=== PATIENT | female | born 1965 | race Caucasian/White ===

== ENCOUNTER → 2017-12-14 | Outpatient (CLI) | payer OTHER ==
[~2017-12-14] VITALS: Ht 160 cm; Wt 107.3 kg
[~2017-12-14] MED LIST: ASPI81TA28 PO; ATOR10TA82 PO; FLUO20CA35 PO; LISI10TA PO; METF-384 PO; MULT-506 PO; OXYC-57 PO; SULF800T23 PO
[2017-12-14 13:18] VITALS: BP 120/76; PULSE 118; Ht 160 cm; Wt 107.3 kg
== END | disposition home or self-care (01) ==
LOC: C.NEUR 13:02
PROVIDERS: ATTEND Internal Medicine Pulmonary Disease
DX: R06.83 Snoring (principal); R06.81 Apnea, not elsewhere classified; R53.83 Other fatigue; G47.19 Other hypersomnia; E66.01 Morbid (severe) obesity due to excess calories; F41.8 Other specified anxiety disorders

== ENCOUNTER 2024-02-13 22:09 | Inpatient (IN) ==
[2024-02-13 22:57] LABS: Basophils # (auto) 0.06 K/uL (0.00-0.20); Basophils % (auto) 0.5 %; Eosinophils # (auto) 0.23 K/uL (0.00-0.50); Hematocrit (blood only) 43.3 % (37.0-47.0); Hemoglobin 14.2 g/dl (12.0-16.0); Immature Granulocytes # (auto) 0.04 K/uL (0.01-0.20); Immature Granulocytes % (auto) 0.3 %; Lymphocytes # (auto) 2.59 K/uL (1.20-3.40); Lymphocytes % (auto) 22.4 %; Mean Corpuscular Hemoglobin 28.3 pg (25.0-34.0); Mean Corpuscular Hgb Conc 32.8 g/dL (32.0-36.0); Mean Corpuscular Volume 86.3 fL (80.0-100.0); Mean Platelet Volume 10.9 fL (9.4-12.4); Monocytes # (auto) 0.68 K/uL (0.11-0.59); Monocytes % (auto) 5.9 %; Neutrophils # (auto) 7.97 K/uL (1.40-6.50); Neutrophils % (auto) 68.9 %; Platelet Count 223 K/uL (130-400); RDW Coefficient of Variation 14.6 % (11.5-14.5); Red Blood Count 5.02 M/uL (4.20-5.40); White Blood Count 11.57 K/ul (4.8-10.8)
[2024-02-13 23:12] LABS: Albumin Globulin Ratio 1.2 (0.9-2); BUN Creatinine Ratio 18.8 (10-20); Bilirubin,Total 0.4 mg/dl (0.2-1.0); Calcium 9.2 mg/dl (8.6-10.3); Creatinine Clr Calc Pharmacy 85.9 ml/min; Globulin 3.4 gm/dl (2.5-4.0); Potassium 4.2 mmol/L (3.5-5.1); Total Protein 7.4 gm/dl (6.0-8.3)
[2024-02-13 23:17] LABS: Troponin I High Sensitivity 3.6 pg/ml (0-14)
--- NOTE | 2024-02-13 23:19 | Emergency Department Note ---
Impression & Plan Bilateral pulmonary embolism, DVT (deep venous thrombosis) ED Provider Note NAME: KALYAN PENALOZA AGE: 59 SEX: Female INFORMANT: Patient ED PROVIDER(S): Jeremy Marquez MD CHIEF COMPLAINT: Chest pain PLAN: Disposition: Admitted Outpatient prescription management: None Referral: None MEDICAL DECISION MAKING: Patient presented because of chest pain. Workup was initiated. She had some wheeze and was given a DuoNeb. ECG revealed no acute ischemia. Chest x-ray has a prominent markings but no focal infiltrate. No pneumothorax. Patient had an unremarkable CBC and chemistry panel. Cardiac troponin and BNP negative. Patient D-dimer was markedly elevated. This prompted ultrasound imaging of the legs as well as CT PE study of the chest. Patient was found to have bilateral pulmonary emboli with heart strain as well as a DVT. Patient was informed. Hypercoagulability labs ordered. IV heparin initiated. Consultation was made with the [facility] service, Dr. Briscoe. 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 Vital Signs: reviewed and remarkable for no significant abnormalities Additional History obtained from: none Chronic Medical/Social Conditions affecting care: Depression Prior/ Outside/ External records reviewed: Appendectomy Differential Diagnosis: Cardiac ischemia, aortic dissection, pulmonary embolism, pneumothorax, pneumonia, pericarditis, myocarditis, esophageal rupture, GERD, cholecystitis, pancreatitis, musculoskeletal, as well as other pathologies. Diagnostics, independently interpreted by me: ECG: Twelve-lead ECG reveals a normal sinus rhythm at [address] elevation or depression. No PVCs. Cardiac Monitoring: Cardiac monitoring ordered by me: The patient was placed on continuous cardiac monitoring and observed. It revealed a normal sinus rhythm at 82 beats per minute without ectopy or evidence of dysrhythmia. Medical decision rules: none Imaging studies: Chest x-ray. Findings: A chest x-ray was performed and revealed no pneumothorax, effusion, infiltrate,. CT PE study reveals bilateral pulmonary emboli. I refer you to the EMR for further details. HPI: 59 year old Female arrives for evaluation of chest pain. This started several days ago and is intermittent. The patient also notes the following associated symptoms, cough, feet swelling, joints, running nose, shortness of breath, sore throat, chills. The patient has tried tylenol for relieving factors. Current pain is rated as 3/10. Pt went to [facility] due to depression and referred to ER. No HI. +SI. Pt denies LOC, headache, fevers, chills, diaphoresis, visual changes, neck pain, nausea, vomiting, abdominal pain, back pain, melena, hematochezia, urinary symptoms, numbness, weakness, lymphadenopathy, rash, or other complaints. PAST MEDICAL HISTORY: See Below, depression PAST SURGICAL HISTORY: See Below, SOCIAL HISTORY: See Below, smoker HOME MEDICATIONS: See Below ALLERGIES: See Below VITALS: See Below PHYSICAL EXAMINATION: GENERAL: Awake, alert, well-appearing, in no distress HENT: Normocephalic, atraumatic. Oropharynx unremarkable. EYES: Normal conjunctiva. Sclera non-icteric. NECK: Inspection normal. Non-tender. Supple. No nuchal rigidity. FROM. No masses. RESPIRATORY: Clear to auscultation. No wheezes. No rales. Normal respiratory effort. CARDIAC: Normal rate. Normal rhythm. No murmurs. No rubs. Extremities warm and well perfused. Pulses equal. No JVD. GI: Soft, non-distended. No tenderness to palpation. No rebound or guarding. No masses. RECTAL: Deferred. MUSCULOSKELETAL: Atraumatic. Chest examination reveals no tenderness. The back is symmetrical on inspection without obvious abnormality. There is no CVA tenderness to palpation. No joint edema. LOWER EXTREMITIES: Calves are equal size bilaterally and mildly tender. +1-2 edema. No discoloration. NEURO: Normal sensorium. No sensory or motor deficits noted. SKIN: No rash or jaundice noted. PROCEDURES: none CRITICAL CARE: I have personally spent 40 minutes of critical care time in the direct management of this patient. This includes bedside care, interpretation of diagnostic studies, and testing, discussion with consultants, patient, and other required patient management activities. These minutes are in excess of all separately billable procedures. OBSERVATION NOTE: none Past Med/Surg History Problem List (Updated 02/14/24 @ 03:30 by Jeremy Marquez MD) DVT (deep venous thrombosis) (Acute) Bilateral pulmonary embolism (Acute) Acute pulmonary embolism Kidney stone (Chronic) UTI (urinary tract infection) (Chronic) Depression (Chronic) RLS (restless legs syndrome) (Chronic) S/P cholecystectomy (Chronic) S/P appendectomy (Chronic) History of hysterectomy (Chronic) Left flank pain (Acute) Leukocytosis (Acute) UPJ obstruction, congenital (Chronic) Social History Smoking Status: Current every day smoker Tobacco Type: Cigarettes Preferred Language: Nepali Feels Safe at Home: Yes Allergies Allergies Allergy/AdvReac Type Severity Reaction Status Date / Time Penicillins Allergy Intermediate LIPS Verified 09/19/17 10:58 SWELLED citalopram Allergy Unknown RESTLESS Verified 09/19/17 10:58 LEGS ketorolac Allergy Unknown RESTLESS Verified 09/19/17 10:58 LEGS codeine AdvReac Unknown ABD PAIN Verified 09/19/17 10:58 Home Meds Home Medications Medication Instructions Recorded Confirmed aripiprazole 5 mg tablet 5 mg PO DAILY 02/14/24 02/14/24 venlafaxine 75 mg capsule,extended 75 mg PO DAILY 02/14/24 02/14/24 release 24 hr Results & Data (ED) Vital Signs Vital Signs - 24 hr 02/13/24 22:18 02/13/24 22:41 02/13/24 22:56 Temperature 36.5 C Temperature Source Temporal Artery Scan Pulse Rate 76 73 Pulse Rate [Apical] Respiratory Rate 16 Respiratory Effort / Characteristics Respiratory Depth Normal Respiratory Pattern Blood Pressure 183/92 H Blood Pressure [Right Arm] Blood Pressure Mean 122 Blood Pressure Mean [Right Arm] Pulse Oximetry 93 92 Oxygen Delivery Method Room Air Room Air Sepsis Recent Fever Within 48 Hours No Sepsis New/Unexplained Change in Mental Status No Sepsis Action Taken by Nursing No Action Required 02/14/24 01:32 02/14/24 02:53 02/14/24 03:05 Temperature Temperature Source Pulse Rate 67 Pulse Rate [Apical] 72 Respiratory Rate 16 Respiratory Effort / Characteristics Non-Labored Spontaneous Respiratory Depth Normal Respiratory Pattern Regular Blood Pressure Blood Pressure [Right Arm] 117/99 Blood Pressure Mean Blood Pressure Mean [Right Arm] 105 Pulse Oximetry 92 94 Oxygen Delivery Method Room Air Room Air Sepsis Recent Fever Within 48 Hours Sepsis New/Unexplained Change in Mental Status Sepsis Action Taken by Nursing 02/14/24 03:12 Temperature Temperature Source Pulse Rate Pulse Rate [Apical] 66 Respiratory Rate 16 Respiratory Effort / Characteristics Non-Labored Spontaneous Respiratory Depth Normal Respiratory Pattern Regular Blood Pressure Blood Pressure [Right Arm] 125/71 Blood Pressure Mean Blood Pressure Mean [Right Arm] 89 Pulse Oximetry 95 Oxygen Delivery Method Room Air Sepsis Recent Fever Within 48 Hours Sepsis New/Unexplained Change in Mental Status Sepsis Action Taken by Nursing Laboratory Data 02/13/24 22:30 02/13/24 22:30 Lab Results 02/13/24 02/14/24 Range/Units 22:30 Unknown WBC 11.57 H (4.8-10.8) K/ul RBC 5.02 (4.20-5.40) M/uL Hgb 14.2 (12.0-16.0) g/dl Hct 43.3 (37.0-47.0) % MCV 86.3 (80.0-100.0) fL MCH 28.3 (25.0-34.0) pg MCHC 32.8 (32.0-36.0) g/dL RDW Std Deviation 46.0 (36.4-46.3) fL RDW Coeff of Alber 14.6 H (11.5-14.5) % Plt Count 223 (130-400) K/uL MPV 10.9 (9.4-12.4) fL Immature Gran % (Auto) 0.3 % Neut % (Auto) 68.9 % Lymph % (Auto) 22.4 % Wythe % (Auto) 5.9 % Eos % (Auto) 2.0 % Baso % (Auto) 0.5 % Neut # (Auto) 7.97 H (1.40-6.50) K/uL Lymph # (Auto) 2.59 (1.20-3.40) K/uL Wythe # (Auto) 0.68 H (0.11-0.59) K/uL Eos # (Auto) 0.23 (0.00-0.50) K/uL Baso # (Auto) 0.06 (0.00-0.20) K/uL Immature Gran # (Auto) 0.04 (0.01-0.20) K/uL PT 10.2 (9.0-12.0) Seconds INR 0.9 (0.9-1.1) APTT 27 (21-31) Seconds PTT Ratio 1.0 D-Dimer 2970 H* (0-500) ug/L FEU Sodium 137 (136-145) mmol/L Potassium 4.2 (3.5-5.1) mmol/L Chloride 103 (98-107) mmol/L Carbon Dioxide 26 (21-32) mmol/L Anion Gap 8 (3-11) BUN 15 (6-23) mg/dl Creatinine 0.80 (0.6-1.2) mg/dl Est Cr Clr Drug Dosing 85.9 ml/min eGFR 84.82 BUN/Creatinine Ratio 18.8 (10-20) Glucose 105 H (70-99(Fasting)) mg/dl Calcium 9.2 (8.6-10.3) mg/dl Total Bilirubin 0.4 (0.2-1.0) mg/dl AST 18 (13-39) U/L ALT 17 (7-52) U/L Alkaline Phosphatase 101 (34-104) U/L Troponin I High Sens 3.6 (0-14) pg/ml B-Natriuretic Peptide 19 (0-100) pg/ml Total Protein 7.4 (6.0-8.3) gm/dl Albumin 4.0 (3.4-5.0) gm/dl Globulin 3.4 (2.5-4.0) gm/dl Albumin/Globulin Ratio 1.2 (0.9-2) Lipase 31 (11-82) U/L Adenovirus (PCR) Not Detected (NotDetected) B. pertussis DNA (PCR) Not Detected (NotDetected) B.parapertussis DNA PCR Not Detected (NotDetected) Lyme Disease Screen Negative (Negative) C. pneumoniae DNA (PCR) Not Detected (NotDetected) Coronavirus OC43 (PCR) Not Detected (NotDetected) Coronavirus HKU1 (PCR) Not Detected (NotDetected) Coronavirus 229E (PCR) Not Detected (NotDetected) SARS-CoV-2 (PCR) Not Detected (NotDetected) Coronavirus NL63 (PCR) Not Detected (NotDetected) Human Metapneumovir PCR Not Detected (NotDetected) Influenza Type A (PCR) Not Detected (NotDetected) Influenza Type B (PCR) Not Detected (NotDetected) M. pneumoniae (PCR) Not Detected (NotDetected) Parainfluenza 1 (PCR) Not Detected (NotDetected) Parainfluenza 2 (PCR) Not Detected (NotDetected) Parainfluenza 3 (PCR) Not Detected (NotDetected) Parainfluenza 4 (PCR) Not Detected (NotDetected) RSV (PCR) Not Detected (NotDetected) Entero/Rhino (PCR) Not Detected (NotDetected) Administered Medications Heparin Sodium/Dextrose (Heparin Sodium/Dextrose) 25,000 units in 500 mls @ 26 mls/hr IV .[id number] [facility]; Protocol Stop: 03/15/24 01:44 Last Admin: 02/14/24 02:36 Dose: 1,300 units/hr, 26 mls/hr Documented By: MED Co-signed By: OTTONIEL Discontinued Medications Acetaminophen (Acetaminophen 500 Mg Tab) 1,000 mg PO NOW STA Stop: 02/13/24 23:22 Last Admin: 02/13/24 23:42 Dose: 1,000 mg Documented By: SHARI Albuterol (Albut/Ipratrop 3mg/0.5mg Neb 3 Ml Vial) 3 ml NEB NOW STA; Protocol Stop: 02/13/24 23:22 Last Admin: 02/13/24 23:43 Dose: 3 ml Documented By: SHARI Heparin Sodium (Porcine) (Heparin Sod (Porcine) 1000 Unit/Ml) 1 units IV NOW ONE Stop: 02/14/24 01:44 Last Admin: 02/14/24 02:46 Dose: 6,000 units Documented By: MED Co-signed By: OTTONIEL Heparin Sodium/Dextrose (Heparin Iv Adult Wt-Based Standard W/ Initial Bolus Protocol) 1 each IV NOW STA; Protocol Stop: 02/14/24 01:28 Last Admin: 02/14/24 02:54 Dose: Not Given Documented By: SHARI Hydromorphone HCl (Hydromorphone Inj 0.5 Mg/0.5 Ml Syr) 0.5 mg IV NOW STA Stop: 02/14/24 03:04 Last Admin: 02/14/24 03:18 Dose: 0.5 mg Documented By: SHARI Ioversol (Optiray 320 125ml) 125 ml IV ONCE ONE Stop: 02/14/24 01:23 Last Admin: 02/14/24 01:23 Dose: 118 ml Documented By: MARY Lorazepam (Lorazepam 0.5 Mg Tab) 0.5 mg PO NOW STA Stop: 02/14/24 03:04 Last Admin: 02/14/24 03:17 Dose: 0.5 mg Documented By: [employer] Data Radiologist's Impression: Chest CTA 02/14/24 00:24 CR Exam(s): CTA CHEST IV Amt: 118 ML OPTIRAY 320 EXAM: CT Angiography Chest With Intravenous Contrast CLINICAL HISTORY: Eval for PE, + dimer, cp, sob. TECHNIQUE: Axial computed tomographic angiography images of the chest with intravenous contrast. CTDI is 28.14 mGy and DLP is 777.99 mGy-cm. Automated exposure control was utilized for the study. A dose lowering technique was utilized adhering to the principles of ALARA. MIP reconstructed images were created and reviewed. COMPARISON: No relevant prior studies available. FINDINGS: Pulmonary arteries: Bilateral pulmonary emboli noted involving the distal right main pulmonary artery with extension from the right proximal apical and posterior basal segment with extension, extending into the right posterior basal segments of the lower lobe. There is also thrombus noted in the right middle lobe branches and involving the right anterior apical segment. There is subsegmental thrombus noted involving the posterior basal segments of the left lower lobe. Aorta: The thoracic aorta is normal in caliber. No dissection or aneurysm. Lungs: Scattered ground-glass opacities noted throughout the lungs is somewhat heterogeneous attenuation and evidence of interlobular septal thickening. No well-defined lobar consolidation. Pleural space: Unremarkable. No significant effusion. No pneumothorax. Heart: The cardiac chambers are upper normal limits. There is asymmetric prominence of the right ventricle with the RV LV ratio abnormally dilated at 1.5. No pericardial effusion. Bones/joints: No acute fracture. No dislocation. Soft tissues: Unremarkable. Lymph nodes: Scattered paratracheal and AP window lymph nodes, with the largest lymph node at the level of the aortic arch measuring 14 mm. IMPRESSION: 1. Bilateral pulmonary emboli noted involving the distal right main pulmonary artery with extension from the right proximal apical and posterior basal segment with extension, extending into the right posterior basal segments of the lower lobe. There is also thrombus noted in the right middle lobe branches and involving the right anterior apical segment. There is subsegmental thrombus noted involving the posterior basal segments of the left lower lobe. Evidence of right heart strain with the RV/LV ratio measuring 1.5. 2. Scattered ground-glass opacities noted throughout the lungs is somewhat heterogeneous attenuation and evidence of interlobular septal thickening. Favor interstitial edema over atypical interstitial infection. No well-defined lobar consolidation. No pleural effusion or pneumothorax. Communications: Call Doctor Pulmonary Embolism Electronically signed by: Albino Lmyan MD 02/14/24 02:03 AM Venous Doppler Study 02/14/24 00:24 Exam(s): US VENOUS BILATERAL LOWER EXTREMITIES EXAM: US Duplex Bilateral Lower Extremities Veins CLINICAL HISTORY: eval for DVT. TECHNIQUE: Real-time duplex ultrasound scan of the bilateral lower extremity veins integrating B-mode two-dimensional vascular structure, Doppler spectral analysis, color flow Doppler imaging and compression. COMPARISON: No relevant prior studies available. FINDINGS: Right deep veins: No DVT in the visualized common femoral, femoral, proximal deep femoral or popliteal veins. The veins demonstrate normal color flow, are normally compressible, with normal phasic flow and/or augmentation response. The interrogated calf veins are patent. Right superficial veins: Unremarkable. No thrombus in the saphenofemoral junction. Left deep veins: The left common femoral and superficial femoral veins are compressible and demonstrate normal color flow. There is near complete occlusive thrombus noted in the popliteal vein. This extends distally into the proximal calf veins. Complete evaluation of the calf veins is somewhat limited by edema and patient body habitus. Left superficial veins: Unremarkable. No thrombus in the saphenofemoral junction. Soft tissues: Bilateral fluid collections in the popliteal fossa bilaterally are noted measuring 1.4 x 1.2 cm on the right and 4.8 x 2.7 cm on the left. Subcutaneous edema noted involving both calves. IMPRESSION: 1. There is near complete occlusive thrombus noted in the popliteal vein. This extends distally into the proximal calf veins. Complete evaluation of the calf veins is somewhat limited by edema and patient body habitus. No proximal/central extension to involve the left femoral or common femoral veins. 2. No evidence for right lower extremity deep vein thrombosis. 3. Bilateral Hidalgo's cysts noted in the popliteal fossa measuring 1.4 x 1.2 cm on the right and 4.8 x 2.7 cm on the left. Electronically signed by: Albino Lyman MD 02/14/24 02:00 AM Discharge Plan Visit Data Chief Complaint: Chest Pain Stated Complaint: CHEST PAIN, SOB, SWOLLEN LEGS/ FEET ED Provider: Jeremy Marquez Discharge Problem: Bilateral pulmonary embolism, DVT (deep venous thrombosis) Forms Stand Alone Forms: My [facility] Prescriptions Prescriptions: No Action venlafaxine 75 mg capsule,extended release 24hr 75 mg PO DAILY aripiprazole 5 mg tablet 5 mg PO DAILY Referrals Referrals: Susan Perez MD [Outside Practitioners] -
[2024-02-13 23:42] LABS: D Dimer 2970 ug/L FEU (0-500)
[2024-02-13] MEDS: ACETAMINOPHEN 500 MG TAB PO STA (23:42)
[2024-02-13] MEDS: ALBUT/IPRATROP 3MG/0.5MG NEB 3 ML VIAL NEB STA (23:43)
[2024-02-14 01:06] LABS: Adenovirus PCR Not Detected (NotDetected); Bordetella parapertussis PCR Not Detected (NotDetected); Bordetella pertussis PCR Not Detected (NotDetected); Chlamydia pneumoniae PCR Not Detected (NotDetected); Coronavirus 229E PCR Not Detected (NotDetected); Coronavirus CoV-2 (COVID19)PCR Not Detected (NotDetected); Coronavirus HKU1 PCR Not Detected (NotDetected); Coronavirus NL63 PCR Not Detected (NotDetected); Coronavirus OC43PCR Not Detected (NotDetected); Human Metapneumovirus PCR Not Detected (NotDetected); Influenza A PCR Not Detected (NotDetected); Influenza B PCR Not Detected (NotDetected); Mycoplasma pneumoniae PCR Not Detected (NotDetected); Parainfluenza Virus 1 PCR Not Detected (NotDetected); Parainfluenza Virus 2 PCR Not Detected (NotDetected); Parainfluenza Virus 3 PCR Not Detected (NotDetected); Parainfluenza Virus 4 PCR Not Detected (NotDetected); Respiratory Syncytial VirusPCR Not Detected (NotDetected); Rhinovirus/Enterovirus PCR Not Detected (NotDetected)
[2024-02-14] MEDS: OPTIRAY 320 125ml IV ONE (01:23)
[2024-02-14 01:59] LABS: INR 0.9 (0.9-1.1); Partial Thromboplastin Time 27 Seconds (21-31); Prothrombin Time 10.2 Seconds (9.0-12.0)
--- NOTE | 2024-02-14 02:00 | Ultrasound Report ---
Exam(s): US VENOUS BILATERAL LOWER EXTREMITIES EXAM: US Duplex Bilateral Lower Extremities Veins CLINICAL HISTORY: eval for DVT. TECHNIQUE: Real-time duplex ultrasound scan of the bilateral lower extremity veins integrating B-mode two-dimensional vascular structure, Doppler spectral analysis, color flow Doppler imaging and compression. COMPARISON: No relevant prior studies available. FINDINGS: Right deep veins: No DVT in the visualized common femoral, femoral, proximal deep femoral or popliteal veins. The veins demonstrate normal color flow, are normally compressible, with normal phasic flow and/or augmentation response. The interrogated calf veins are patent. Right superficial veins: Unremarkable. No thrombus in the saphenofemoral junction. Left deep veins: The left common femoral and superficial femoral veins are compressible and demonstrate normal color flow. There is near complete occlusive thrombus noted in the popliteal vein. This extends distally into the proximal calf veins. Complete evaluation of the calf veins is somewhat limited by edema and patient body habitus. Left superficial veins: Unremarkable. No thrombus in the saphenofemoral junction. Soft tissues: Bilateral fluid collections in the popliteal fossa bilaterally are noted measuring 1.4 x 1.2 cm on the right and 4.8 x 2.7 cm on the left. Subcutaneous edema noted involving both calves. IMPRESSION: 1. There is near complete occlusive thrombus noted in the popliteal vein. This extends distally into the proximal calf veins. Complete evaluation of the calf veins is somewhat limited by edema and patient body habitus. No proximal/central extension to involve the left femoral or common femoral veins. 2. No evidence for right lower extremity deep vein thrombosis. 3. Bilateral Hidalgo's cysts noted in the popliteal fossa measuring 1.4 x 1.2 cm on the right and 4.8 x 2.7 cm on the left. Electronically signed by: Albino Lyman MD 02/14/24 02:00 AM
--- NOTE | 2024-02-14 02:04 | CT Scan Report ---
Exam(s): CTA CHEST IV Amt: 118 ML OPTIRAY 320 EXAM: CT Angiography Chest With Intravenous Contrast CLINICAL HISTORY: Eval for PE, + dimer, cp, sob. TECHNIQUE: Axial computed tomographic angiography images of the chest with intravenous contrast. CTDI is 28.14 mGy and DLP is 777.99 mGy-cm. Automated exposure control was utilized for the study. A dose lowering technique was utilized adhering to the principles of ALARA. MIP reconstructed images were created and reviewed. COMPARISON: No relevant prior studies available. FINDINGS: Pulmonary arteries: Bilateral pulmonary emboli noted involving the distal right main pulmonary artery with extension from the right proximal apical and posterior basal segment with extension, extending into the right posterior basal segments of the lower lobe. There is also thrombus noted in the right middle lobe branches and involving the right anterior apical segment. There is subsegmental thrombus noted involving the posterior basal segments of the left lower lobe. Aorta: The thoracic aorta is normal in caliber. No dissection or aneurysm. Lungs: Scattered ground-glass opacities noted throughout the lungs is somewhat heterogeneous attenuation and evidence of interlobular septal thickening. No well-defined lobar consolidation. Pleural space: Unremarkable. No significant effusion. No pneumothorax. Heart: The cardiac chambers are upper normal limits. There is asymmetric prominence of the right ventricle with the RV LV ratio abnormally dilated at 1.5. No pericardial effusion. Bones/joints: No acute fracture. No dislocation. Soft tissues: Unremarkable. Lymph nodes: Scattered paratracheal and AP window lymph nodes, with the largest lymph node at the level of the aortic arch measuring 14 mm. IMPRESSION: 1. Bilateral pulmonary emboli noted involving the distal right main pulmonary artery with extension from the right proximal apical and posterior basal segment with extension, extending into the right posterior basal segments of the lower lobe. There is also thrombus noted in the right middle lobe branches and involving the right anterior apical segment. There is subsegmental thrombus noted involving the posterior basal segments of the left lower lobe. Evidence of right heart strain with the RV/LV ratio measuring 1.5. 2. Scattered ground-glass opacities noted throughout the lungs is somewhat heterogeneous attenuation and evidence of interlobular septal thickening. Favor interstitial edema over atypical interstitial infection. No well-defined lobar consolidation. No pleural effusion or pneumothorax. Communications: Call Doctor Pulmonary Embolism Electronically signed by: Albino Lyman MD 02/14/24 02:03 AM
[2024-02-14] MEDS: HEPARIN SODIUM/DEXTROSE 25,000 UNITS/500 ML BAG IV SCH (02:36)
[2024-02-14] MEDS: HEPARIN SOD (PORCINE) 1000 UNIT/ML IV ONE (02:46)
[2024-02-14] MEDS: Heparin IV Adult Wt-Based Standard w/ INITIAL Bolus Protocol IV STA (02:54)
[2024-02-14] MEDS: LORazepam 0.5 MG TAB PO STA (03:17)
[2024-02-14] MEDS: HYDROmorphone INJ 0.5 MG/0.5 ML SYR IV STA (03:18)
--- NOTE | 2024-02-14 03:20 | History & Physical Report ---
Date of Service February 14, 2024 Assessment & Plan (1) Acute pulmonary embolism: Plan: 59-year-old female with past medical history significant for type 2 diabetes currently not on any medications, hyperlipidemia, multinodular goiter, mild persistent asthma, morbid obesity, severe major depression, history of substance abuse, history of DVT presents with chest pain and shortness of breath and swelling of the lower extremity and found to acute DVT and PE. Patient states since last 2 days she is having chest pains all over the chest on and off and also chest tenderness for last 2 days. Walking short distance making her short of breath. Also noticed swelling and pain in the lower extremities past 2 days. Having headache for last 2 days. Dizziness for last 2 days. Mild blurred vision. Has some runny nose. Having cough. Smokes 1 pack of cigarettes daily. No fevers. Feeling cold. Appetite is okay. No difficulty swallowing. No nausea. No abdominal pain. Normal bowel and bladder movements. Denies any blood in the stools or black stools. Denies any hematuria. Also having pain all over the body and bones and asking to check for Lyme screen as she was camping. Patient states in 2019 she had a kidney surgery for recurrent UTI looks like a left pyeloplasty after that she developed pneumonia and then she developed DVT in right lower extremity for which she treated for 3 months of anticoagulation as per patient. Currently resting comfortably and hemodynamically stable. Acute pulmonary embolism Acute left lower extremity DVT Has chest pain and shortness of breath and cough History of DVT in the past postsurgery Hypercoagulable workup sent by ER On IV heparin Will follow echo Monitor in the hospital Tobacco abuse Cough Counseling Nebs as needed Depression Continue home medications History of hyperlipidemia Currently not taking statin Can check lipid profile History of diabetes Says she she was taken off metformin Sliding scale Will follow HbA1c levels Obesity Counseling DVT prophylaxis On IV heparin Disposition Telemetry Full code. History of Present Illness Chief Complaint: Chest pain and shortness of breath and found to have acute PE Primary Care Provider: Rudy Mckenzie MD 59-year-old female with past medical history significant for type 2 diabetes currently not on any medications, hyperlipidemia, multinodular goiter, mild persistent asthma, morbid obesity, severe major depression, history of substance abuse, history of DVT presents with chest pain and shortness of breath and swelling of the lower extremity and found to acute DVT and PE. Patient states since last 2 days she is having chest pains all over the chest on and off and al so chest tenderness for last 2 days. Walking short distance making her short of breath. Also noticed swelling and pain in the lower extremities past 2 days. Having headache for last 2 days. Dizziness for last 2 days. Mild blurred vision. Has some runny nose. Having cough. Smokes 1 pack of cigarettes daily. No fevers. Feeling cold. Appetite is okay. No difficulty swallowing. No nausea. No abdominal pain. Normal bowel and bladder movements. Denies any blood in the stools or black stools. Denies any hematuria. Also having pain all over the body and bones and asking to check for Lyme screen as she was camping. Patient states in 2019 she had a kidney surgery for recurrent UTI looks like a left pyeloplasty after that she developed pneumonia and then she developed DVT in right lower extremity for which she treated for 3 months of anticoagulation as per patient. Currently resting comfortably and hemodynamically stable. Past medical history. As mentioned above Past surgical history. Colonoscopy cystoscopy. Bilateral BSO for fibroid tumor. Bilateral ACL replacement. Laparoscopic cholecystectomy. Left laparoscopic pyeloplasty. Ligation of oviducts. Removal of ruptured appendix. Total hysterectomy. Social history. . Smoking average 1 pack a day for 39 years. Alcohol occasional. No drug use. Family history. Mother had uterine cancer. Allergies Allergy/AdvReac Type Severity Reaction Status Date / Time Penicillins Allergy Intermediate LIPS Verified 09/19/17 10:58 SWELLED citalopram Allergy Unknown RESTLESS Verified 09/19/17 10:58 LEGS ketorolac Allergy Unknown RESTLESS Verified 09/19/17 10:58 LEGS codeine AdvReac Unknown ABD PAIN Verified 09/19/17 10:58 Home Medications Medication Instructions Recorded Confirmed Type apixaban 5 mg tablet (Eliquis) 5 mg PO BID #74 tabs 02/14/24 Rx aripiprazole 5 mg tablet 5 mg PO DAILY 02/14/24 02/14/24 History venlafaxine 75 mg capsule,extended 75 mg PO DAILY 02/14/24 02/14/24 History release 24 hr Past Med/Surg History Problem List (Updated 02/14/24 @ 03:30 by Jeremy Marquez MD) DVT (deep venous thrombosis) (Acute) Bilateral pulmonary embolism (Acute) Acute pulmonary embolism Kidney stone (Chronic) UTI (urinary tract infection) (Chronic) Depression (Chronic) RLS (restless legs syndrome) (Chronic) S/P cholecystectomy (Chronic) S/P appendectomy (Chronic) History of hysterectomy (Chronic) Left flank pain (Acute) Leukocytosis (Acute) UPJ obstruction, congenital (Chronic) Social History Smoking Status: Current every day smoker Tobacco Type: Cigarettes Hx Alcohol Use: No Hx Substance Use: No Preferred Language: Faroese Beliefs That Will Affect Care: None Current Living Situation: Alone Feels Safe at Home: Yes Safety Concerns: Feels Safe At This Time Review of Systems Review of Systems: All systems reviewed & are unremarkable except as noted in HPI & below Physical Exam Physical Exam: General- Not in distress Head- atraumatic Eyes- PERRL. ENT- oropharynx clear Neck- supple, no JVD. Lungs- clear to auscultation no wheezing or crackles. Heart- regular rate and rhythm; no murmur, no gallop. Abdomen- normal bowel sounds, soft, nontender, no distension Extremities- b/l lower extremity edema and erythema seen. Neuro- alert, oriented PERRL, no facial palsy; no dysarthria; moves extremities Results & Data Results & Data Vital Signs (Past 12 Hours) Vital Signs Temp Pulse Pulse Resp BP BP Pulse Ox 02/14/24 02:53 94 02/14/24 01:32 72 16 117/99 92 02/13/24 22:56 73 02/13/24 22:41 92 02/13/24 22:18 36.5 C 76 16 183/92 H 93 O2 Del Method 02/14/24 02:53 Room Air 02/14/24 01:32 Room Air 02/13/24 22:56 02/13/24 22:41 Room Air 02/13/24 22:18 Room Air Diagnostic Findings Laboratory Results WBC 11.57 K/ul (4.8-10.8) H 02/13/24 22:30 RBC 5.02 M/uL (4.20-5.40) 02/13/24 22:30 Hgb 14.2 g/dl (12.0-16.0) 02/13/24 22:30 Hct 43.3 % (37.0-47.0) 02/13/24 22:30 MCV 86.3 fL (80.0-100.0) 02/13/24 22: MCH 28.3 pg (25.0-34.0) 02/13/24 22: MCHC 32.8 g/dL (32.0-36.0) 02/13/24 22: RDW Std Deviation 46.0 fL (36.4-46.3) 02/13/24: RDW Coeff of Alber 14.6 % (11.5-14.5) H 02/13/24 22: Plt Count 223 K/uL (130-400) 02/13/24 22: MPV 10.9 fL (9.4-12.4) 02/13/24 22: Immature Gran % (Auto) 0.3 % 02/13/24: Neut % (Auto) 68.9 % 02/13/24 22: Lymph % (Auto) 22.4 % 02/13/24: Bennett % (Auto) 5.9 % 02/13/24: Eos % (Auto) 2.0 % 02/13/24: Baso % (Auto) 0.5 % 02/13/24 22:30 Neut # (Auto) 7.97 K/uL (1.40-6.50) H 02/13/24 22:30 Lymph # (Auto) 2.59 K/uL (1.20-3.40) 02/13/24 22:30 Bennett # (Auto) 0.68 K/uL (0.11-0.59) H 02/13/24 22:30 Eos # (Auto) 0.23 K/uL (0.00-0.50) 02/13/24 22:30 Baso # (Auto) 0.06 K/uL (0.00-0.20) 02/13/24 22: Immature Gran # (Auto) 0.04 K/uL (0.01-0.20) 02/13/24 22:30 PT 10.2 Seconds (9.0-12.0) 02/13/24 22:30 INR 0.9 (0.9-1.1) 02/13/24 22:30 APTT 27 Seconds (21-31) 02/13/24 22:30 PTT Ratio 1.0 02/13/24 22:30 D-Dimer 2970 ug/L FEU (0-500) H* 02/13/24 22:30 Sodium 137 mmol/L (136-145) 02/13/24 22:30 Potassium 4.2 mmol/L (3.5-5.1) 02/13/24 22:30 Chloride 103 mmol/L (98-107) 02/13/24 22:30 Carbon Dioxide 26 mmol/L (21-32) 02/13/24 22:30 Anion Gap 8 (3-11) 02/13/24 22:30 BUN 15 mg/dl (6-23) 02/13/24 22:30 Creatinine 0.80 mg/dl (0.6-1.2) 02/13/24 22: Est Cr Clr Drug Dosing 85.9 ml/min 02/13/24 22: eGFR 84.82 02/13/24 22:30 BUN/Creatinine Ratio 18.8 (10-20) 02/13/24 22: Glucose 105 mg/dl (70-99(Fasting)) H 02/13/24 22:30 Calcium 9.2 mg/dl (8.6-10.3) 02/13/24 22:30 Total Bilirubin 0.4 mg/dl (0.2-1.0) 02/13/24 22:30 AST 18 U/L (13-39) 02/13/24 22:30 ALT 17 U/L (7-52) 02/13/24 22:30 Alkaline Phosphatase 101 U/L (34-104) 02/13/24 22:30 Troponin I High Sens 3.6 pg/ml (0-14) 02/13/24 22:30 B-Natriuretic Peptide 19 pg/ml (0-100) 02/13/24 22:30 Total Protein 7.4 gm/dl (6.0-8.3) 02/13/24 22:30 Albumin 4.0 gm/dl (3.4-5.0) 02/13/24 22: Globulin 3.4 gm/dl (2.5-4.0) 02/13/24 22:30 Albumin/Globulin Ratio 1.2 (0.9-2) 02/13/24 22: Lipase 31 U/L (11-82) 02/13/24 22:30 Adenovirus (PCR) Not Detected (NotDetected) 02/14/24 Unknown B. pertussis DNA (PCR) Not Detected (NotDetected) 02/14/24 Unknown B.parapertussis DNA PCR Not Detected (NotDetected) 02/14/24 Unknown Lyme Disease Screen Negative (Negative) 02/13/24 22:30 C. pneumoniae DNA (PCR) Not Detected (NotDetected) 02/14/24 Unknown Coronavirus OC43 (PCR) Not Detected (NotDetected) 02/14/24 Unknown Coronavirus HKU1 (PCR) Not Detected (NotDetected) 02/14/24 Unknown Coronavirus 229E (PCR) Not Detected (NotDetected) 02/14/24 Unknown SARS-CoV-2 (PCR) Not Detected (NotDetected) 02/14/24 Unknown Coronavirus NL63 (PCR) Not Detected (NotDetected) 02/14/24 Unknown Human Metapneumovir PCR Not Detected (NotDetected) 02/14/24 Unknown Influenza Type A (PCR) Not Detected (NotDetected) 02/14/24 Unknown Influenza Type B (PCR) Not Detected (NotDetected) 02/14/24 Unknown M. pneumoniae (PCR) Not Detected (NotDetected) 02/14/24 Unknown Parainfluenza 1 (PCR) Not Detected (NotDetected) 02/14/24 Unknown Parainfluenza 2 (PCR) Not Detected (NotDetected) 02/14/24 Unknown Parainfluenza 3 (PCR) Not Detected (NotDetected) 02/14/24 Unknown Parainfluenza 4 (PCR) Not Detected (NotDetected) 02/14/24 Unknown RSV (PCR) Not Detected (NotDetected) 02/14/24 Unknown Entero/Rhino (PCR) Not Detected (NotDetected) 02/14/24 Unknown Impressions Chest CTA 02/14/24 00:24 CR Exam(s): CTA CHEST IV Amt: 118 ML OPTIRAY 320 EXAM: CT Angiography Chest With Intravenous Contrast CLINICAL HISTORY: Eval for PE, + dimer, cp, sob. TECHNIQUE: Axial computed tomographic angiography images of the chest with intravenous contrast. CTDI is 28.14 mGy and DLP is 777.99 mGy-cm. Automated exposure control was utilized for the study. A dose lowering technique was utilized adhering to the principles of ALARA. MIP reconstructed images were created and reviewed. COMPARISON: No relevant prior studies available. FINDINGS: Pulmonary arteries: Bilateral pulmonary emboli noted involving the distal right main pulmonary artery with extension from the right proximal apical and posterior basal segment with extension, extending into the right posterior basal segments of the lower lobe. There is also thrombus noted in the right middle lobe branches and involving the right anterior apical segment. There is subsegmental thrombus noted involving the posterior basal segments of the left lower lobe. Aorta: The thoracic aorta is normal in caliber. No dissection or aneurysm. Lungs: Scattered ground-glass opacities noted throughout the lungs is somewhat heterogeneous attenuation and evidence of interlobular septal thickening. No well-defined lobar consolidation. Pleural space: Unremarkable. No significant effusion. No pneumothorax. Heart: The cardiac chambers are upper normal limits. There is asymmetric prominence of the right ventricle with the RV LV ratio abnormally dilated at 1.5. No pericardial effusion. Bones/joints: No acute fracture. No dislocation. Soft tissues: Unremarkable. Lymph nodes: Scattered paratracheal and AP window lymph nodes, with the largest lymph node at the level of the aortic arch measuring 14 mm. IMPRESSION: 1. Bilateral pulmonary emboli noted involving the distal right main pulmonary artery with extension from the right proximal apical and posterior basal segment with extension, extending into the right posterior basal segments of the lower lobe. There is also thrombus noted in the right middle lobe branches and involving the right anterior apical segment. There is subsegmental thrombus noted involving the posterior basal segments of the left lower lobe. Evidence of right heart strain with the RV/LV ratio measuring 1.5. 2. Scattered ground-glass opacities noted throughout the lungs is somewhat heterogeneous attenuation and evidence of interlobular septal thickening. Favor interstitial edema over atypical interstitial infection. No well-defined lobar consolidation. No pleural effusion or pneumothorax. Communications: Call Doctor Pulmonary Embolism Electronically signed by: Albino Lyman MD 02/14/24 02:03 AM Venous Doppler Study 02/14/24 00:24 Exam(s): US VENOUS BILATERAL LOWER EXTREMITIES EXAM: US Duplex Bilateral Lower Extremities Veins CLINICAL HISTORY: eval for DVT. TECHNIQUE: Real-time duplex ultrasound scan of the bilateral lower extremity veins integrating B-mode two-dimensional vascular structure, Doppler spectral analysis, color flow Doppler imaging and compression. COMPARISON: No relevant prior studies available. FINDINGS: Right deep veins: No DVT in the visualized common femoral, femoral, proximal deep femoral or popliteal veins. The veins demonstrate normal color flow, are normally compressible, with normal phasic flow and/or augmentation response. The interrogated calf veins are patent. Right superficial veins: Unremarkable. No thrombus in the saphenofemoral junction. Left deep veins: The left common femoral and superficial femoral veins are compressible and demonstrate normal color flow. There is near complete occlusive thrombus noted in the popliteal vein. This extends distally into the proximal calf veins. Complete evaluation of the calf veins is somewhat limited by edema and patient body habitus. Left superficial veins: Unremarkable. No thrombus in the saphenofemoral junction. Soft tissues: Bilateral fluid collections in the popliteal fossa bilaterally are noted measuring 1.4 x 1.2 cm on the right and 4.8 x 2.7 cm on the left. Subcutaneous edema noted involving both calves. IMPRESSION: 1. There is near complete occlusive thrombus noted in the popliteal vein. This extends distally into the proximal calf veins. Complete evaluation of the calf veins is somewhat limited by edema and patient body habitus. No proximal/central extension to involve the left femoral or common femoral veins. 2. No evidence for right lower extremity deep vein thrombosis. 3. Bilateral Hidalgo's cysts noted in the popliteal fossa measuring 1.4 x 1.2 cm on the right and 4.8 x 2.7 cm on the left. Electronically signed by: Albino Lyman MD 02/14/24 02:00 AM ECG Additional Comments: ECG. Normal sinus rhythm with rate of 71. No acute ST changes seen. QTc 406. Code Status & VTE Plan VTE Prophylaxis Plan VTE Prophylaxis will be ordered: Yes
[2024-02-14] MEDS ORDERED: ALBUT/IPRATROP 3MG/0.5MG NEB 3 ML VIAL NEB PRN (04:48)
[2024-02-14] MEDS ORDERED: ACETAMINOPHEN 325 MG TAB PO PRN (04:48)
[2024-02-14] MEDS ORDERED: NITROGLYCERIN SL 0.4 MG/TAB TAB SL PRN (04:48)
[2024-02-14] MEDS: oxyCODONE HCL IR 5 MG TAB (IMMEDIATE RELEASE) PO PRN (06:25)
--- NOTE | 2024-02-14 07:39 | XRay Report ---
XR chest 1V portable CLINICAL HISTORY: Chest pain, nonspecific TECHNIQUE: Single frontal radiograph of the chest was obtained. Comparison: None available at the time of this dictation. FINDINGS: No lines and tubes are seen. Cardiomegaly is noted. The lungs are clear. No evidence of pleural effus ion or pneumothorax. IMPRESSION: No acute chest disease. ACT 112: Negative or not required by law. Electronically signed by: Vern Mauro M.D. 02/14/2024 7:38 AM
[2024-02-14] MEDS ORDERED: ENOXAPARIN 1 MG/KG SC SCH (07:45)
[2024-02-14 08:13] LABS: Basophils # (auto) 0.05 K/uL (0.00-0.20); Basophils % (auto) 0.5 %; Eosinophils # (auto) 0.24 K/uL (0.00-0.50); Eosinophils % (auto) 2.5 %; Hematocrit (blood only) 39.4 % (37.0-47.0); Hemoglobin 12.8 g/dl (12.0-16.0); Immature Granulocytes # (auto) 0.04 K/uL (0.01-0.20); Immature Granulocytes % (auto) 0.4 %; Lymphocytes % (auto) 34.9 %; Mean Corpuscular Hemoglobin 28.3 pg (25.0-34.0); Mean Corpuscular Hgb Conc 32.5 g/dL (32.0-36.0); Mean Platelet Volume 10.5 fL (9.4-12.4); Monocytes # (auto) 0.59 K/uL (0.11-0.59); Monocytes % (auto) 6.1 %; Neutrophils # (auto) 5.41 K/uL (1.40-6.50); Neutrophils % (auto) 55.6 %; Platelet Count 194 K/uL (130-400); RDW Coefficient of Variation 14.5 % (11.5-14.5); RDW Standard Deviation 46.2 fL (36.4-46.3); Red Blood Count 4.53 M/uL (4.20-5.40); White Blood Count 9.73 K/ul (4.8-10.8)
[2024-02-14 08:30] LABS: BUN Creatinine Ratio 17.5 (10-20); Calcium 8.9 mg/dl (8.6-10.3); Magnesium 1.8 mg/dl (1.7-2.4); Potassium 4.1 mmol/L (3.5-5.1)
[2024-02-14] MEDS: ENOXAPARIN 100 MG/1ML SYR SQ SCH (08:36)
[2024-02-14] MEDS: ARIPiprazole 5 MG TAB PO SCH (08:36)
[2024-02-14] MEDS: VENLAFAXINE HCL XR 75 MG CAPXR PO SCH (08:36)
[2024-02-14 08:37] LABS: Troponin I High Sensitivity 4.5 pg/ml (0-14)
[2024-02-14 08:39] LABS: ANTI-Xa, UFH(UnfractionatedHep 0.49 IU/ml (0.3-0.7)
[2024-02-14 09:21] LABS: Estimated Average Glucose 143 mg/dl; Hemoglobin A1C 6.6 % (4.5-5.6)
--- OUTSIDE RECORDS SUMMARY | 2024-02-14 11:29 | External Medical Summary | Summary of Care ---
Author Name Unknown Organization [facility] Address [address] [place] [address] Phone [phone] Care Team Providers Care Subscription Crew Leader Name Role Phone Lena Jimenez MD Primary Care Provider [phone] Reason for Visit * Reason Onset Date Comments No Show 01/12/2024 [facility] No Show Auto mation Encounter Details Date Type Department Care Team (Late st Contact Info) Description 01/12/2024 Telephone Family Practice [facility] [address] [place] [address] Lena Jimenez MD [address] [place] [address] No Show ([place] No Show Automation) Allergies Active Allergy Reactions Criticality Noted Date Comments Buprenorphine-Naloxone Rash 06/20/2019 Citalopram Other (Please comment) 07/06/2017 Restless legs Codeine Abdominal pain 11/01/2015 Ketorolac Tromethamine 11/01/2015 Other reaction(s): Other (See Comment) Restless leg syndrome Penicillins 12/05/2013 Swelling in her lips and gluteals. In approximately 2007 documented as of this encounter (statuses as of 01/12/2024) Medications Medication Sig Dispensed Refills Start Date End Date Status Blood Glucose Monitoring Suppl (Wedding SpotTOUCH VERIO) w/Device KITIndications:Type 2 diabetes mellitus with hemoglobin A1c goal of less than 7.0% ([facility]) Test blood sugars 2 times daily and as needed DX:E11.9 1 Kit 08/10/2017 Active ONETOUCH KIANA LARSEN MISCIndications:Typ e 2 diabetes mellitus with hemoglobin A1c goal of less than 7.0% (HCC) Test blood sugars 2 times daily and as needed DX:E11.9 100 Each 5 08/10/2017 Active ferrous sulfate (FEOSOL) 325 (65 FE) MG TabletIndications:O ther iron deficiency anemia Take one by mouth every other day 60 Tab 11 09/05/2019 Active Atorvastatin Calcium 10 MG Oral Tablet (LIPITOR)Indication s:Dyslipidemia, goal LDL below 70 TAKE 1 TABLET BY MOUTH EVERY DAY 90 Tab 03/04/2020 Active Gabapentin 800 MG Oral Tablet (Neurontin) Take 1 Tablet by mouth in the morning and 1 Tablet at noon and 1 Tablet before bedtime. 08/19/2020 Active Buprenorphine HCl 8 MG Sublingual Tablet Sublingual (Subutex) 08/24/2020 Active hydrOXYzine HCl 25 MG Oral Tablet TAKE 1 TABLET BY MOUTH EVERY 6 HOURS NEEDED FOR ANXIETY 40 Tablet 2 02/09/2022 Active OneTouch Verio In Vitro Strip (Glucose Blood)Indications:T ype 2 diabetes mellitus with hemoglobin A1c goal of less than 7.0% (HCC) TEST BLOOD SUGARS 2 TIMES DAILY AND NEEDED DX:E11.9 200 Strip 3 08/10/2022 Active Aspirin 81 MG Oral Tablet Delayed Release (Aspirin Adult Low Strength)Indication s:Type 2 diabetes mellitus with hemoglobin A1c goal of less than 7.0% (HCC) Take 1 Tablet by mouth in the morning. 90 Tablet 3 09/04/2023 Active Fluticasone Propionate HFA 110 MCG/ACT Inhalation Aerosol Inhale 2 Puffs by mouth in the morning and 2 Puffs before bedtime. 36 g 3 09/04/2023 08/29/2024 Active metFORMIN HCl 1000 MG Oral Tablet (Glucophage)Indicat ions:Type 2 diabetes mellitus with hemoglobin A1c goal of less than 7.0% (HCC) Take 0.5 Tablets by mouth 2 times a day with morning and evening meals. 180 Tablet 3 09/04/2023 Active Albuterol Sulfate HFA 108 (90 Base) MCG/ACT Inhalation Aerosol SolutionIndications :Shortness of breath,Tobacco use Inhale 2 Puffs by mouth every 6 hours as needed (wheezing). 18 g 5 09/04/2023 Active Sertraline HCl 100 MG Oral Tablet (Zoloft) Take 1 Tablet by mouth in the morning. 90 Tablet 3 09/04/2023 Active documented as of this encounter (statuses as of 01/12/2024) Active Problems Problem Noted Date Diagnosed Date Morbid obesity 08/22/2022 History of DVT of lower extremity 04/21/2020 Overview: left Mild persistent asthma without complication 03/25 History of substance abuse 08/27/2019 Overview: Opiates - was on suboxone Multinodular goiter 08/27/2019 Severe major depression 01/04/2018 Dyslipidemia 08/10/2017 Type 2 diabetes mellitus wit h hemoglobin A1c goal of less than 7.0% 07/06/2017 documented as of this encounter (statuses as of 01/12/2024) Resolved Problems Problem Noted Date Diagnosed Date Resolved Date History of 2019 novel jean baptiste virus disease (COVID-19) 08/07/2020 08/22/2022 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 0 to 44.9 in adult 12/04/2017 08/22/2022 Overview: Per Obesity protocol #1 - Morbid obesity with BMI of 45.0-49.9, adult 08/10/2017 12/08/2017 Overview: Per Obesity protocol #1 - Loose stools 08/10/2017 08/27/2019 Hydronephrosis of left kidney 07/16/2017 08/27/2019 Screening for cardiovascular condition 07/06/2017 07/16/2017 Family history of diabetes mellitus 07/06/2017 08/27/2019 History of tobacco abuse 07/06/2017 Mood disorder 07/06/2017 08/27/2019 Elevated liver enzymes 07/06/201708/26 Encounter for monitoring Sub oxone maintenance therapy 05/01/2016 07/06/2017 Nephrolithiasis 04/23/2014 08/27/2019 Calculus of kidney 12/29/2013 8 Overview: Bilateral, L>R. Hydronephrosis 12/29/2013 07/16/2017 Overview: Left. Flank pain 12/05/2013 07/06/2017 documented as of this encounter (statuses as of 01/12/2024) Immunizations Name Administration Dates Next Due COVID-19 mRNA, LNP-s, No Pre serve, 2-Dose Series (Pfizer) 08/09/2020,07/15/2020 Pneumococcal Conjugate Vaccine, 7 Valent 014,02/10/2013 Pneumococcal Polysaccharide PPV23 (Pneumovax) Seasonal Influenza, Trivalen t, (IIV3), with Preserv, (Fluzone) 05/14/2013,02/10/2013 documented as of this encounter Social History Tobacco Use Types Packs/Day Years Used Date Smoking Tobacco: Every Day Cigarettes 1 39 Started: 12/31/1978; Last attempted to quit: 12/31/2017 Smokeless Tobacco: Never Alcohol Use Standard Drinks/Week Comments Yes 0 (1 standard drink = 0.6 oz pur e alcohol) wine once in awhile PHQ-2 Answer Date Recorded PHQ Adult Total Score 12 09/04/2023 Hunger Vital Sign Answer Date Recorded Within the past 12 months, y ou worried that your food would run out before you got the money to buy more. Never true 09/04/19 24 Within the past 12 months, t he food you bought just didn't last and you didn't have money to get more. Never true 09/04/2023 Childcare Answer Date Recorded Do you feel overwhelmed with taking care of a child, family member or friend? No 09/04/2023 Does your family need help f inding childcare? (Household - for ages 0-17 years) Not on file 09/04/2023 Clothing Answer Date Recorded Have you been unable to get clothing when it was really needed? No 09/04/2023 Is your family able to get c lothes or diapers when needed? (Household - for ages 0-17 years) Not on file 09/04/2023 Personal Safety Answer Date Recorded Do you feel unsafe or have concerns for your saf ety? No 09/04/2023 Do you have concerns for you r family's safety? (Household - for ages 0-17 years) Not on file 09/04/2023 Utilities Answer Date Recorded Do you have trouble paying y our heating, water, or electric bill? No 09/04/2023 Is your family able to pay t he heat, water, or electric bill? (Household - for ages 0-17 years) Not on file 09/04/2023 Does your family have access to good internet? (Household - for ages 0-17 years) Not on file 09/04/2023 Employment Status Answer Date Recorded Are you unemployed or without regular income? No 09/04/2023 Does the household have a re gular source of income? (Household - for ages 0-17 years) Not on file 09/04/2023 Social Connections Answer Date Recorded How often do you feel lonely or isolated from th ose around you? Never 09/04/2023 Financial Resource Strain Answer Date R ecorded Do you have any trouble payi ng for your medications, or do you think you might in the future? No 09/04/2023 Does your family have troubl e paying for medicine? (Household - for ages 0-17 years) Not on file 09/04/2023 Transportation Needs Answer Date Record ed READ ONLY Do you have troubl e getting a ride to medical visits or work? Never True 09/04/2023 Does your family have a hard time getting a ride to doctors visits? (Household - for ages 0-17 years) Not on file 09/04/2023 Has lack of transportation k ept you from medical appointments, meetings, work, or from getting things needed for daily living? Check all that apply. (Adult - for ages 18 years and over) Not on file 09/04/2023 Do you (or your family) have trouble finding or paying for a ride (transportation)? (Household - for ages 0-17 years) Not on file 09/04/2023 Housing Stability Answer Date Recorded Do you currently live in a s helter or have no steady place to sleep at night? No 09/04/2023 READ ONLY Do you think you a re at risk of becoming homeless? No 09/04/2023 Does your family worry about paying for your home or becoming homeless? (Household - for ages 0-17 years) Not on file 0 09/04/2023 Are you homeless or worried that you might be in the future? (Adult - for ages 18 years and over) Not on file Are you (or your family) maurice eless or worried that you might be in the future? (Household - for ages 0-17 years) Not on file Food Insecurity Answer Date Recorded Do you need food for this week? No 09/04/2023 Are you able to get enough f ood for your family? (Household - for ages 0-17 years) Not on file 09/04/2023 Does your family need food t his week? (Household - for ages 0-17 years) Not on file 09/04/2023 Do you always have enough fo od for your family? (Household - for ages 0-17 years) Not on file 09/04/2023 Sex and Gender Information Value Date Recorded Sex Assigned at Female 09/04/2023 11:27 AM EDT Gender Identity Female 09/04/2023 11:27 AM EDT Sexual Orientation Straight 09/04/2023 11 :27 AM EDT Job Start Date Occupation Industry Not on file Not on file Not on file documented as of this encounter Miscellaneous Notes * Telephone Encounter - Meailyn, No Show - 01/12/2024 6:46 PM EDT Dear Racheal Herman, Looks like you missed an appointment with LENA JIMENEZ on 01/08/2024 at 11:00 AM. If you haven't already rescheduled, you have a couple of options: Reschedule in Public [email or web address] Call us at [phone] Can't make a future appointment? Cancel and let someone else have your spot! It's easy to do via [employer] or by calling us. [facility] We hope to see you back in our office soon. Sincerely, LENA JIMENEZ documented in this encounter Plan of Treatment Upcoming Encounters Date Type Department Care Team (Late st Contact Info) Description 03/10/2024 10:40 AM EST Office Visit Family Practice [facility] [address] [place] [address] Toni Burnham MD [address] [place] [id number] Scheduled Procedures Name Priority Associated Diagnoses Date/Ti me COLONOSCOPY FLEXIBLE PROXIMA L DIAGNOSTIC Recall Encounter for screening colonoscopy Health Maintenance Due Date Last Done Comments DISCUSS TOBACCO CESSATION (REFER TO SMARTSET #4765) 1965 Diabetic Eye Exam 1983 Hepatitis C Screening 1983 Hepatitis B Vaccine (1 of 3 - 19+ 3-dose series) 02/06/1984 Cologuard 2010 Fecal Occult Blood Test 2010 Sigmoidoscopy 2010 Albumin/Creatinine Ratio 08/10/2018 08/10/2017 Pneumococcal Vaccine: Pediatrics (0 to 5 Years) and At-Risk Patients (6 to 64 Years) (2 of 2 - PCV) 01/04/2019 01/04/2018 B-12 12/11/2019 12/10/2018 Mammogram 04/21/2021 04/21/2020, 07/27/2017 Influenza Vaccine (FLU shot) (#1) 2023 01/04/2018 (Declined), 07/06/2017 (Refused), 05/14/2013, Additional history exists HbA1c 06/27/2024 12/29/2023, 03/25, 12/10/2018, Additional history exists Depression Monitoring 09/03/2024 09/04/2023 Diabetic Foot Exam 09/03/2024 09/04/2023, 0 10/21/2018, 08/10/2017 GFR 12/28/2024 12/29/2023, 07/23, 08/19/2019, Additional history exists Colonoscopy 12/06/2027 12/05/2017, 12/05/2017 Colorectal Cancer Screening 12/06/2027 DTap/Tdap Vaccines (2 - Td or Tdap) 01/05/2028 01/04/2018 (Declined) Lipid Panel 12/28/2028 12/29/2023, 03/25, 12/10/2018, Additional history exists COVID-19 Vaccine Discontinued 08/09/2020, 07/15/2020 Lung Cancer Screening Completed 10/30/2023 HIV Screening Discontinued HPV (Gardasil) Vaccine Aged Out No lo nger eligible based on patient's age to complete this topic MENINGOCOCCAL (MENACTRA/MENVEO) Aged Out No longer eligible based on patient's age to complete this topic Zoster Vaccines Discontinued documented as of this encounter Medical Devices Not on filedocumented as of this encounter Care Teams Subscription Crew Leader Relationship Specialty Start Date End Date Lena Jimenez MD [address] [place] [address] PCP - General Family Medicine 04/21/20 documented as of this encounter
--- OUTSIDE RECORDS SUMMARY | 2024-02-14 11:29 | External Medical Summary | Summary of Care ---
Author Name Unknown Organization [facility] Address [address] [place] [address] Phone [phone] Care Team Providers Care Automotive Artist Name Role Phone Rudy Mckenzie MD Primary Care Provider [phone] Encounter Details Date Type Department Care Team (Late st Contact Info) Description 01/10/2024 Orders Only Family Practice [facility] [address] [facility] [place] [address] Rudy Mckenzie MD [address] [place] [address] Allergies Active Allergy Reactions Criticality Noted Date Comments Buprenorphine-Naloxone Rash 06/20/2019 Citalopram Other (Please comment) 07/06/2017 Restless legs Codeine Abdominal pain 11/01/2015 Ketorolac Tromethamine 11/01/2015 Other reaction(s): Other (See Comment) Restless leg syndrome Penicillins 12/05/2013 Swelling in her lips and gluteals. In approximately 2008 documented as of this encounter (statuses as of 01/10/2024) Medications Medication Sig Dispensed Refills Start Date End Date Status Blood Glucose Monitoring Suppl (ONETOUCH VERIO) w/Device KITIndications:Type 2 diabetes mellitus with hemoglobin A1c goal of less than 7.0% ([facility]) Test blood sugars 2 times daily and as needed DX:E11.9 1 Kit 08/10/2017 Active ONETOUCH DELICA LANCETS FINE MISCIndications:Typ e 2 diabetes mellitus with hemoglobin [...] as of this encounter (statuses as of 01/10/2024) Active Problems Problem Noted Date Diagnosed Date [...] as of this encounter (statuses as of 01/10/2024) Resolved Problems Problem Noted Date Diagnosed Date [...] as of this encounter (statuses as of 01/10/2024) Immunizations Name Administration Dates Next Due COVID-19 [...] on file documented as of this encounter Plan of Treatment Upcoming Encounters Date Type Department Care Team (Late st Contact Info) Description 03/10/2024 10:40 AM EST Office Visit Family Practice [facility] [address] [place] [address] Toni Burnham MD [address] [place] [address] Scheduled Procedures Name Priority Associated Diagnoses Date/Ti me COLONOSCOPY FLEXIBLE PROXIMA L DIAGNOSTIC Recall Encounter for screening colonoscopy Health Maintenance Due Date Last Done Comments DISCUSS TOBACCO CESSATION (REFER TO SMARTSET #5773) 1965 Diabetic Eye Exam 1983 Hepatitis C Screening 1983 Hepatitis B Vaccine (1 of 3 - 19+ 3-dose series) 02/06/1984 Cologuard 2010 Fecal Occult Blood Test 2010 Sigmoidoscopy 2010 Albumin/Creatinine Ratio 08/10/2018 08/10/2017 Pneumococcal Vaccine: Pediatrics (0 to 5 Years) and At-Risk Patients (6 to 64 Years) (2 of 2 - PCV) 01/04/2019 01/04/2018 B-12 12/11/2019 12/10/2018 GFR 08/18/2020 12/29/2023, 04/11/2019, 08/19/2019, Additional history exists HbA1c 10/20/2020 12/29/2023, 03/25, 12/10/2018, Additional history exists Mammogram 04/21/2021 04/21/2020, 07/27/2017 Influenza Vaccine (FLU shot) (#1) 2023 01/04/2018 (Declined), 07/06/2017 (Refused), 05/14/2013, Additional history exists Depression Monitoring 09/03/2024 09/04/2023 Diabetic Foot Exam 09/03/2024 09/04/2023, 0 10/21/2018, 08/10/2017 Lipid Panel 04/21/2025 12/29/2023, 03/25, 12/10/2018, Additional history exists Colonoscopy 12/06/2027 12/05/2017, 12/05/2017 Colorectal Cancer Screening 12/06/2027 DTap/Tdap Vaccines (2 - Td or Tdap) 01/05/2028 01/04/2018 (Declined) COVID-19 Vaccine Discontinued 08/09/2020, 07/15/2020 Lung Cancer Screening Completed 10/30/2023 HIV Screening Discontinued HPV (Gardasil) Vaccine Aged Out No lo nger eligible based on patient's age to complete this topic MENINGOCOCCAL (MENACTRA/MENVEO) Aged Out No longer eligible based on patient's age to complete this topic Zoster Vaccines Discontinued documented as of this encounter Medical Devices Not on filedocumented as of this encounter Procedures Procedure Name Priority Date/Time Associated Diagnosis Comments CHEMISTRY-OUTSIDE Routine 12/29/2023 TSH Routine 12/29/2023 documented in this encounter Results * TSH (12/29/2023) TSH - OUTSIDE LAB 1.760 0.450 - 4.500 UIU/ML OUTSIDE LAB (SEE SCANNED REPORT) Blood Venous blood specimen / Unknown 12/29/2023 Erick Virk MD LAB BLOOD ORDERA BLES OUTSIDE LAB (SEE SCANNED REPORT) * (ABNORMAL) CHEMISTRY-OUTSIDE (12/29/2023) Not all results display below - see scan for full detail OUTSIDE LAB (SEE SCANNED REPORT) Comment:SCAN INCLUDES: CMP14 , LIPID PANEL, CBCD, THYROID PANEL, HGB A1C, LYME SCREEN CREATININE 0.67 0.57 - 1.00 MG/DL OUTSIDE LAB (SEE SCANNED REPORT) EGFR 101 >59 ML/MIN OUTSIDE L AB (SEE SCANNED REPORT) POTASSIUM 4.4 3.5 - 5.2 MMOL/L OUTSIDE LAB (SEE SCANNED REPORT) GLUCOSE 123(A) 70 - 99 MG/DL OUTSIDE LAB (SEE SCANNED REPORT) HOURS FASTING OUTSID E LAB (SEE SCANNED REPORT) TRIGLYCERIDES-OUT SIDE LAB 238(A) 0 - 149 MG/DL OUTSIDE LAB (SEE SCANNED REPORT) CHOLESTEROL-OUTSI DE LAB 190 100 - 199 MG/DL OUTSIDE LAB (SEE SCANNED REPORT) HDL-OUTSIDE LAB 39(A) >39 MG/DL OUTS [facility] (SEE SCANNED REPORT) CHOL/HDL RATIO-OUTSIDE LAB 4.9(A) 0.0 - 4.4 OUTSIDE LA B (SEE SCANNED REPORT) LDL (CALCULATED)-OUTS [facility] 110(A) 0 - 99 MG/DL OUTSIDE LAB (SEE SCANNED REPORT) LDL (DIRECT MEASURE)-OUTSIDE LAB OUTSIDE LAB (SEE SCANNED REPORT) HEMOGLOBIN, F0P-JTNIEII LAB 6.4(A) 4.8 - 5.6 % OUTSIDE LAB (SEE SCANNED REPORT) PHOSPHORUS-OUTSID E LAB 4.0 3.0 - 4.3 MG/DL OUTSIDE LAB (SEE SCANNED REPORT) PTH-OUTSIDE LAB OUTS [facility] (SEE SCANNED REPORT) MICROALBUMIN RATIO-OUTSIDE LAB OUTSIDE LA B (SEE SCANNED REPORT) PROTEIN, UA-OUTSIDE LAB OUTSIDE LAB (SEE SCANNED REPORT) HGB 14.2 11.1 - 15.9 G/DL OUTSIDE LAB (SEE SCANNED REPORT) 12/29/2023 Erick Virk MD LABORATORY OUTSIDE LAB (SEE SCANNED REPORT) documented in this encounter Care Teams Automotive Artist Relationship Specialty Start Date End Date Rudy Mckenzie MD [address] [place] [address] PCP - General Family Medicine 04/21/20 documented as of this encounter
--- OUTSIDE RECORDS SUMMARY | 2024-02-14 11:29 | External Medical Summary | Summary of Care ---
Author Name Unknown Organization [facility] Address [address] [place] [address] Phone [phone] Care Team Providers Care Medical Office Receptionist Name Role Phone Rudy Mckenzie MD Primary Care Provider [phone] Encounter Details Date Type Department Care Team (Late st Contact Info) Description 02/11/2024 Orders Only Outcomes Research Department [address] [place], [place] [id number] Joselin Guaman CHRA [facility] Other*[id number] Allergies Active Allergy Reactions Criticality Noted Date Comments Buprenorphine-Naloxone Rash 06/20/2019 Citalopram Other (Please comment) 07/06/2017 Restless legs Codeine Abdominal pain 11/01/2015 Ketorolac Tromethamine 11/01/2015 Other reaction(s): Other (See Comment) Restless leg syndrome Penicillins 12/05/2013 Swelling in her lips and gluteals. In approximately 2007 documented as of this encounter (statuses as of 02/11/2024) Medications Medication Sig Dispensed Refills Start Date End Date Status Blood Glucose Monitoring Suppl (ONETOUCH VERIO) w/Device KITIndications:Type 2 diabetes mellitus with hemoglobin A1c goal of less than 7.0% (HCC) Test blood sugars 2 times daily and as needed DX:E11.9 1 Kit 08/10/2017 Active ONETOUCH DELYESIKA LANCETS FINE MISCIndications:Typ e 2 diabetes mellitus [...] as of this encounter (statuses as of 02/11/2024) Active Problems Problem Noted Date Diagnosed Date [...] as of this encounter (statuses as of 02/11/2024) Resolved Problems Problem Noted Date Diagnosed Date [...] as of this encounter (statuses as of 02/11/2024) Immunizations Name Administration Dates Next Due COVID-19 mRNA, LNP-s, No Pre serve, 2-Dose Series (Pfizer) 08/09/2020,07/15/2020 Pneumococcal Conjugate Vaccine, 7 Valent 014,02/10/2013 Pneumococcal Polysaccharide PPV23 (Pneumovax) Seasonal Influenza Vac., MDV, IM, 0.5 mL (Fluzon e) 05/14/2013,02/10/2013 documented as of this encounter Social [...] 10:40 AM EST Office Visit Family Practice [facility] [address] [place] [address] Toni Burnham MD [address] [place] [address] Scheduled Orders Name Type Priority Associated Diagnoses Orde r Schedule MYCODE SUBSEQUENT ADULT Lab Routine MyCode Research Other*[id number] Every 6 Months for 2 Occurrences starting 02/11/2024 until 03/02/2025 Scheduled Procedures Name Priority Associated Diagnoses Date/Ti me COLONOSCOPY FLEXIBLE PROXIMA L DIAGNOSTIC Recall Encounter for screening colonoscopy Health Maintenance Due Date Last Done Comments DISCUSS TOBACCO CESSATION (REFER TO SMARTSET #8069) 1965 Diabetic Eye Exam 1983 Hepatitis C [...] Not on filedocumented as of this encounter Visit Diagnoses Diagnosis My[facility] Research Other*[id number] documented in this encounter Care Teams Medical Office Receptionist Relationship Specialty Start Date End Date Rudy Mckenzie MD [address] [place] [address] PCP - General Family Medicine 04/21/20 documented as of this encounter
--- OUTSIDE RECORDS SUMMARY | 2024-02-14 11:29 | External Medical Summary | Summary of Care ---
Author Name Unknown Organization [facility] Address [address] [place] [address] Phone [phone] Care Team Providers Care Acid Supervisor Name Role Phone Rudy Mckenzie MD Primary Care Provider [phone] Reason for Visit * Reason Onset Date Comments No Show 12/14/2023 [facility] No Show Auto mation Encounter Details Date Type Department Care Team (Late st Contact Info) Description 12/14/2023 Telephone Family Practice [facility] [address] [place] [address] Denise Nur CRNP [address] [place] [address] No Show ([place] No Show Automation) Allergies Active Allergy Reactions Criticality Noted Date Comments Buprenorphine-Naloxone Rash 06/20/2019 Citalopram Other (Please comment) 07/06/2017 Restless legs Codeine Abdominal pain 11/01/2015 Ketorolac Tromethamine 11/01/2015 Other reaction(s): Other (See Comment) Restless leg syndrome Penicillins 12/05/2013 Swelling in her lips and gluteals. In approximately 2007 documented as of this encounter (statuses as of 12/14/2023) Medications Medication Sig Dispensed Refills Start Date End Date Status Blood Glucose Monitoring Suppl ([employer] VERIO) w/Device KITIndications:Type 2 diabetes mellitus with [...] as of this encounter (statuses as of 12/14/2023) Active Problems Problem Noted Date Diagnosed Date [...] as of this encounter (statuses as of 12/14/2023) Resolved Problems Problem Noted Date Diagnosed Date [...] as of this encounter (statuses as of 12/14/2023) Immunizations Name Administration Dates Next Due COVID-19 mRNA, LNP-s, No Pre serve, 2-Dose Series ([employer]) 08/09/2020,07/15/2020 Pneumococcal Conjugate Vaccine, 7 Valent 014,02/10/2013 Pneumococcal Polysaccharide PPV23 (Pneumovax) Seasonal Influenza, Split, IIV3, With Preserve, Inj 05/14/2013,02/10/2013 documented as of this encounter Social [...] encounter Miscellaneous Notes * Telephone Encounter - Shavon, No Show - 12/14/2023 8:37 AM EDT Dear Racheal Herman, Looks like you missed an appointment with DENISE NUR on 12/11/2023 at 04:40 PM. If you haven't already rescheduled, you have a couple of options: Reschedule in [email or web address] Call us at [phone] Can't make a future appointment? Cancel and let someone else have your spot! It's easy to do via [employer] or by calling us. [facility] We hope to see you back in our office soon. Sincerely, DENISE NUR documented in this encounter Plan of Treatment Upcoming Encounters Date Type Department Care Team (Late st Contact Info) Description 12/20/2023 3:15 PM EDT Imaging Radiology [address] [place] [address] 12/20/2023 3:30 PM EDT Imaging Radiology [address] [place] [address] 03/10/2024 10:40 AM EST Office Visit Family Practice [facility] [address] [place] [address] Toni Burnham MD [address] [place] [address] Scheduled Procedures Name Priority Associated Diagnoses Date/Ti me COLONOSCOPY FLEXIBLE PROXIMA L DIAGNOSTIC Recall Encounter for screening colonoscopy Health Maintenance Due Date Last Done Comments DISCUSS TOBACCO CESSATION (REFER TO SMARTSET #8642) 1965 Diabetic Eye Exam 1983 Hepatitis C Screening 1983 Hepatitis B Vaccine (1 of 3 - 19+ 3-dose series) 02/06/1984 Cologuard 2010 Fecal Occult Blood Test 2010 Sigmoidoscopy 2010 Albumin/Creatinine Ratio 08/10/2018 08/10/2017 Pneumococcal Vaccine: Pediatrics (0 to 5 Years) and At-Risk Patients (6 to 64 Years) (2 of 2 - PCV) 01/04/2019 01/04/2018 B-12 12/11/2019 12/10/2018 GFR 08/18/2020 08/19/2019, 07/23, 08/05/2019, Additional history exists HbA1c 10/20/2020 04/21/2020, 11/22, 11/22/2017, Additional history exists Mammogram 04/21/2021 04/21/2020, 07/27/2017 Influenza Vaccine (FLU shot) (#1) 2023 01/04/2018 (Declined), 07/06/2017 (Refused), 05/14/2013, Additional history exists Depression Monitoring 09/03/2024 09/04/2023 Diabetic Foot Exam 09/03/2024 09/04/2023, 0 10/21/2018, 08/10/2017 Lipid Panel 04/21/2025 04/21/2020, 08, 07/06/2017, Additional history exists Colonoscopy 12/06/2027 12/05/2017, 12/05/2017 Colorectal Cancer Screening 12/06/2027 DTaP,Tdap,and Td Vaccines (2 - Td or Tdap) 01/05/2028 [...] filedocumented as of this encounter Care Teams Acid Supervisor Relationship Specialty Start Date End Date Rudy Mckenzie MD [address] [place] [address] PCP - General Family Medicine 04/21/20 documented as of this encounter
--- OUTSIDE RECORDS SUMMARY | 2024-02-14 11:30 | External Medical Summary | Summary of Care ---
Author Name Unknown Organization [facility] Address [address] [place] [address] Phone [phone] Care Team Providers Care Crew Leader/Control Room Operator Name Role Phone Rudy Mckenzie MD Primary Care Provider [phone] Reason for Visit * Reason Onset Date Comments Order Request 08/30/2023 Encounter Details Date Type Department Care Team (Late st Contact Info) Description 08/30/2023 Telephone Access Center, [place] [facility] [address] [facility] *DO NOT REMOVE THIS DEPARTMENT* [place] [address] Services, Scheduling [address] [place] [address] Order Request Allergies Active Allergy Reactions Criticality Noted Date Comments Buprenorphine-Naloxone Rash 06/20/2019 Citalopram Other (Please comment) 07/06/2017 Restless legs Codeine Abdominal pain 11/01/2015 Ketorolac Tromethamine 11/01/2015 Other reaction(s): Other (See Comment) Restless leg syndrome Penicillins 12/05/2013 Swelling in her lips and gluteals. In approximately 2007 documented as of this encounter (statuses as of 09/03/2023) Medications Medication Sig Dispensed Refills Start Date End Date Status Blood Glucose Monitoring Suppl ([employer] VERIO) w/Device KITIndications:Type 2 diabetes mellitus with hemoglobin A1c goal of less than 7.0% ([facility]) Test blood sugars 2 times daily and as needed DX:E11.9 1 Kit 0 08/10/2017 Active ONETOUCH DELICA LANCETS FINE MISCIndications:Type 2 diabetes mellitus with hemoglobin A1c goal of less than 7.0% (HCC) Test blood sugars 2 times daily and as needed DX:E11.9 100 Each 5 08/10/2017 Active ferrous sulfate (FEOSOL) 325 (65 FE) MG TabletIndications:Ot her iron deficiency anemia Take one by mouth every other day 60 Tab 11 09/05/2019 Active Aspirin Adult Low Strength 81 MG Oral Tablet Delayed Release (aspirin enteric coated)Indications:T ype 2 diabetes mellitus with hemoglobin A1c goal of less than 7.0% (HCC) TAKE 1 TABLET BY MOUTH EVERY DAY 90 Tab 3 03/02/2020 Active Atorvastatin Calcium 10 MG Oral Tablet (LIPITOR)Indications :Dyslipidemia, goal LDL below 70 TAKE 1 TABLET BY MOUTH EVERY DAY 90 Tab 0 03/04/2020 Active Flovent HFA 110 MCG/ACT Inhalation Aerosol (fluticasone) INHALE 2 PUFFS BY MOUTH TWICE A DAY 36 g 1 08/20/2020 Active Gabapentin 800 MG Oral Tablet (Neurontin) Take 800 mg by mouth 3 times a day. 0 08/19/2020 Active Buprenorphine HCl 8 MG Sublingual Tablet Sublingual (Subutex) 0 08/24/2020 Acti ve Nystatin 249695 UNIT/GM External Ointment APPLY 2-3 TIMES PER DAY 0 08/20/2020 Active hydrOXYzine HCl 25 MG Oral Tablet TAKE 1 TABLET BY MOUTH EVERY 6 HOURS NEEDED FOR ANXIETY 40 Tablet 2 02/09/2022 Active OneTouch Verio In Vitro Strip (Glucose Blood)Indications:Ty pe 2 diabetes mellitus with hemoglobin A1c goal of less than 7.0% (HCC) TEST BLOOD SUGARS 2 TIMES DAILY AND NEEDED DX:E11.9 200 Strip 3 08/10/2022 Active metFORMIN HCl 1000 MG Oral Tablet (Glucophage)Indicati ons:Type 2 diabetes mellitus with hemoglobin A1c goal of less than 7.0% (HCC) TAKE 1 TABLET BY MOUTH TWICE DAILY with morning and evening meals. 60 Tablet 0 11/09/2022 Active Sertraline HCl 100 MG Oral Tablet (Zoloft) TAKE ONE TABLET BY MOUTH ONCE DAILY 30 Tablet 0 02/13/2023 Active Albuterol Sulfate HFA 108 (90 Base) MCG/ACT Inhalation Aerosol SolutionIndications: Shortness of breath,Tobacco use INHALE TWO PUFFS BY MOUTH EVERY 6 HOURS NEEDED FOR WHEEZING 18 g 0 02/13/2023 Active documented as of this encounter (statuses as of 09/03/2023) Active Problems Problem Noted Date Diagnosed Date Morbid obesity 08/22/2022 History of DVT of lower extremity 04/21/2020 Overview: left Mild persistent asthma without complication 03/25 History of substance abuse 08/27/2019 Overview: Opiates - was on suboxone Multinodular goiter 08/27/2019 Severe major depression 01/04/2018 Dyslipidemia 08/10/2017 Tobacco use disorder 07/06/2017 Type 2 diabetes mellitus wit h hemoglobin A1c goal of less than 7.0% 07/06/2017 documented as of this encounter (statuses as of 09/03/2023) Resolved Problems Problem Noted Date Diagnosed Date [...] Family history of diabetes mellitus 07/06/2017 08/27/2019 Mood disorder 07/06/2017 08/27/2019 Elevated liver enzymes 07/06/201708/26 Encounter for monitoring Sub oxone maintenance therapy 05/01/2016 07/06/2017 Nephrolithiasis 04/23/2014 08/27/2019 Calculus of kidney 12/29/2013 8 Overview: Bilateral, L>R. Hydronephrosis 12/29/2013 07/16/2017 Overview: Left. Flank pain 12/05/2013 07/06/2017 documented as of this encounter (statuses as of 09/03/2023) Immunizations Name Administration Dates Next Due COVID-19 mRNA, LNP-s, No Pre serve, 2-Dose Series ([employer]) 08/09/2020,07/15/2020 Pneumococcal Polysaccharide PPV23 (Pneumovax) documented as of this encounter Social History Tobacco Use Types Packs/Day Years Used Date Smoking Tobacco: Former Cigarettes 1 39 0 12/31/1978 - 12/31/2017 Smokeless Tobacco: Never Alcohol Use Standard Drinks/Week Comments Yes 0 (1 standard drink = 0.6 oz pur e alcohol) wine once in awhile PHQ-2 Answer Date Recorded PHQ Adult Total Score 12 08/25/2020 Hunger Vital Sign Answer Date Recorded Within the past 12 months, y ou worried that your food would run out before you got the money to buy more. Never true 08/26/19 21 Within the past 12 months, t he food you bought just didn't last and you didn't have money to get more. Never true 08/25/2020 Sex and Gender Information Value Date Recorded Sex Assigned at Not on file Gender Identity Not on file Sexual Orientation Not on file Job Start Date Occupation Industry Not on file Not on file Not on file documented as of this encounter Patient Instructions * Patient Instructions* Kelsey Toney LPN - 08/31/2023 8:21 AM EDT Images from the original note were not included. Mammography Mammography is an X-ray exam of your breast tissue. The image it makes is called a mammogram. A mammogram can help find problems with your breasts, such as cysts or cancer. Mammography is the best breast cancer screening tool available. Have screening mammograms and professional breast exams as often as your healthcare provider recommends. Also, be sure you know how your breasts normally look and feel. This makes it easier to noticeany changes. Report changes to your healthcare provider as soon as possible. How do I get ready for a mammogram? Schedule the test for 1 week after your period. Your breasts are less sore then. Make sure your clinic gets images of your last mammogram if it was done somewhere else. This lets the provider compare the 2 sets of images for any changes. On the morning of your test, dont use deodorant, powder, or perfume. Wear a top that you can take off easily. What happens during a mammogram? You will need to undress from the waist up. The technologist will position your breast to get the best test results. Each of your breasts will be compressed one at a time. This helps get the most complete X-ray image. Your breasts will be repositioned to get at least 2 separate views of each breast. What happens after a mammogram? More X-rays are sometimes needed. If not done at the time of your initial mammogram, youll be called to schedule them. You should receive your test results in writing. Ask about this on the day of your appointment. Have mammograms as often as your healthcare provider recommends. Let the technologist know if: Youre or think you may be You have breast implants You have any scars or moles on or near your breasts Youve had a breast biopsy or surgery Youre Date Last Reviewed: 09/21/201619992606-[address] [employer] [place] [address]. All rights reserved. This information is not intended as a substitute for professional medical care. Always follow your healthcare professional's instructions documented in this encounter Miscellaneous Notes * Telephone Encounter - Nel Bustamante OSA - 09/03/2023 9:13 AM EDT My g sent * Telephone Encounter - Hasmukh Escamilla OSA - 08/31/2023 10:11 AM EDT Attempted to call and schedule, VM box full. Will try later * Telephone Encounter - Kelsey Toney LPN - 08/31/2023 8:21 AM EDT Order signed, please assist with scheduling * Telephone Encounter - Shireen Cai OSA - 08/30/2023 8:15 AM EDT An order was requested for this patient. Name of Requesting Provider: Racheal Herman Order Requested: Mammogram Diagnosis/Reason for Request: Routine If order request is for Mammogram: Is the patient having any breast symptoms? No Is there a chance of ? No Has the patient had any breast problems in the past? No What location AND department does the patient wish to have their order completed at? [facility] Fax Number, if applicable: n/a If the caller is not a current patient, please advise the patient to call their current PCP to havethe order's prior to being seen in our office. The patient was informed that our providers would not order anything (medication, labs, etc.) prior to being seen. documented in this encounter Plan of Treatment Upcoming Encounters Date Type Department Care Team (Late st Contact Info) Description 09/04/2023 11:40 AM EDT Office Visit Family Practice [facility] [address] [facility] [place] [address] Toni Burnham MD [address] [facility] [place] [address] Scheduled Orders Name Type Priority Associated Diagnoses Orde r Schedule MAMMOGRAM SCREENING HARDEEP BILATERAL Medical Imaging Routine Encounter for screening mammogram for malignant neoplasm of breast Expected: 08/31/2023, Expires: 09/30/2024 Scheduled Procedures Name Priority Associated Diagnoses Date/Ti me COLONOSCOPY FLEXIBLE PROXIMA L DIAGNOSTIC Recall Encounter for screening colonoscopy Health Maintenance Due Date Last Done Comments HIV Screening 02/06/1980 Diabetic Eye Exam 1983 Hepatitis C Screening 1983 Hepatitis B (1 of 3 - 19+ 3-dose series) 02/06/1984 Cologuard 2010 Fecal Occult Blood Test 2010 Sigmoidoscopy 2010 Lung Cancer Screening 2015 Zoster Vaccines (1 of 2) 2015 Albumin/Creatinine Ratio 08/10/2018 08/10/2017 Pneumococcal Vaccine: Pediatrics (0 to 5 Years) and At-Risk Patients (6 to 64 Years) (2 of 2 - PCV) 01/04/2019 01/04/2018 Diabetic Foot Exam 10/22/2019 10/21/2018, 08/10/2017 B-12 12/11/2019 12/10/2018 GFR 08/18/2020 08/19/2019, 07/23, 08/05/2019, Additional history exists Depression, Most Recent Score >= 10 (will fire each visit until score < 10) 08/26/2020 08/25/2020 HbA1c 10/20/2020 04/21/2020, 11/22, 11/22/2017, Additional history exists Mammogram 04/21/2021 04/21/2020, 07/27/2017 COVID-19 Vaccine ( season) 2022 08/09/2020, 07/15/2020 Influenza Vaccine (FLU shot) (Season Ended) 2023 01/04/2018 (Declined), 07/06/2017 (Refused), 05/14/2013, Additional history exists Lipid Panel 04/21/2025 04/21/2020, 11/22, 07/06/2017, Additional history exists Colonoscopy 12/06/2027 12/05/2017, 12/05/2017 Colorectal Cancer Screening 12/06/2027 DTaP,Tdap,and Td Vaccines (2 - Td or Tdap) 01/05/2028 01/04/2018 (Declined) GARDASIL-HPV IMMUNIZATION SERIES Aged Out No longer eligible based on patient's age to complete this topic MENINGOCOCCAL (MENACTRA/MENVEO) Aged Out No longer eligible based on patient's age to complete this topic documented as of this encounter Medical Devices Not on filedocumented as of this encounter Visit Diagnoses Diagnosis Encounter for screening mammogram for malignant neoplasm of breast- Primary Other screening mammogram documented in this encounter Care Teams Crew Leader/Control Room Operator Relationship Specialty Start Date End Date Rudy Mckenzie MD [address] [place] [address] PCP - General Family Medicine 04/21/20 documented as of this encounter
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
--- OUTSIDE RECORDS SUMMARY | 2024-02-14 11:30 | External Medical Summary | Summary of Care ---
Author Name Unknown Organization [facility] Address [address] [place] [address] Phone [phone] Care Team Providers Care Brass Pickler Name Role Phone Rudy Mckenzie MD Primary Care Provider [phone] Encounter Details Date Type Department Care Team (Late st Contact Info) Description 09/07/2023 Orders Only PATIENT PORTAL DO NOT DELETE THIS DEPT USED BY [place] [id number] Allergies Active Allergy Reactions Criticality Noted Date Comments Buprenorphine-Naloxone Rash 06/20/2019 Citalopram Other (Please comment) 07/06/2017 Restless legs Codeine Abdominal pain 11/01/2015 Ketorolac Tromethamine 11/01/2015 Other reaction(s): Other (See Comment) Restless leg syndrome Penicillins 12/05/2013 Swelling in her lips and gluteals. In approximately 2007 documented as of this encounter (statuses as of 09/07/2023) Medications Medication Sig Dispensed Refills Start Date End Date Status Blood Glucose Monitoring Suppl (ONETOUCH VERIO) w/Device KITIndications:Type 2 diabetes mellitus with hemoglobin A1c goal of less than 7.0% (HCC) Test blood sugars 2 times daily and as needed DX:E11.9 1 Kit 0 08/10/2017 Active ONETOUCH DELICA LANCETS FINE MISCIndications:Typ [...] as of this encounter (statuses as of 09/07/2023) Active Problems Problem Noted Date Diagnosed Date [...] as of this encounter (statuses as of 09/07/2023) Resolved Problems Problem Noted Date Diagnosed Date [...] as of this encounter (statuses as of 09/07/2023) Immunizations Name Administration Dates Next Due COVID-19 [...] money to get more. Never true 09/04/2023 Sex and Gender Information Value Date [...] Description 09/11/2023 11:15 AM EDT Imaging Radiology [address] [facility] [place] [address] 10/09/2023 1:45 PM EDT Imaging Radiology [address] [place] [address] 03/10/2024 10:40 AM EST Office Visit Family Practice [facility] [address] [facility] [place] [address] Toni uBrnham MD [address] [place] [address] Scheduled Procedures Name Priority Associated Diagnoses Date/Ti me COLONOSCOPY FLEXIBLE PROXIMA L DIAGNOSTIC Recall Encounter for screening colonoscopy Health Maintenance Due Date Last Done Comments DISCUSS TOBACCO CESSATION (REFER TO SMARTSET #[id number]) 1965 Hepatitis C Screening 1983 Hepatitis B [...] filedocumented as of this encounter Care Teams Brass Pickler Relationship Specialty Start Date End Date Rudy Mckenzie MD [address] [place] [address] PCP - General Family Medicine 04/21/20 documented as of this encounter
--- OUTSIDE RECORDS SUMMARY | 2024-02-14 11:30 | External Medical Summary | Summary of Care ---
Author Name Unknown Organization [facility] Address [address] [place] [address] Phone [phone] Care Team Providers Care House Registry Rn Name Role Phone Rudy Mckenzie MD Primary Care Provider [phone] Reason for Visit * Reason Onset Date Comments Health Maintenance 09/28/2023 Encounter Details Date Type Department Care Team (Late st Contact Info) Description 09/28/2023 Telephone Family Practice [facility] [address] [place] [address] Rudy Mckenzie MD [address] [facility] [place] [address] Health Maintenance Allergies Active Allergy Reactions Criticality Noted Date Comments Buprenorphine-Naloxone Rash 06/20/2019 Citalopram Other (Please comment) 07/06/2017 Restless legs Codeine Abdominal pain 11/01/2015 Ketorolac Tromethamine 11/01/2015 Other reaction(s): Other (See Comment) Restless leg syndrome Penicillins 12/05/2013 Swelling in her lips and gluteals. In approximately 2008 documented as of this encounter (statuses as of 09/28/2023) Medications Medication Sig Dispensed Refills Start Date End Date Status Blood Glucose Monitoring Suppl (ONETOUCH VERIO) w/Device KITIndications:Type 2 diabetes mellitus with hemoglobin A1c goal of less than 7.0% ([facility]) Test blood sugars 2 times daily and as needed DX:E11.9 1 Kit 08/10/2017 Active ONETOUCH KIANA PINONEMILY FINE MISCIndications:Typ e 2 diabetes mellitus with [...] as of this encounter (statuses as of 09/28/2023) Active Problems Problem Noted Date Diagnosed Date [...] as of this encounter (statuses as of 09/28/2023) Resolved Problems Problem Noted Date Diagnosed Date [...] as of this encounter (statuses as of 09/28/2023) Immunizations Name Administration Dates Next Due COVID-19 mRNA, LNP-s, No Pre serve, 2-Dose Series (qLearning) 08/09/2020,07/15/2020 Pneumococcal Conjugate Vaccine, 7 Valent 014,02/10/2013 [...] encounter Miscellaneous Notes * Telephone Encounter - Keila Roldan LPN - 09/28/2023 2:24 PM EDT Care Gaps Comprehensive Care Outreach Last Office/Telemedicine Visit: 09/04/2023 (in office), Visit date not found (telemedicine) Next Office Visit: 03/10/2024 Hemoglobin AIC Results: Lab Results Component Value Date/Time HEMOGLOBIN A1C - [facility] 6.4 (H) 04/21/2020 09:05 AM HEMOGLOBIN A1C - [facility] 5.8 (H) 12/10/2018 03:10 PM HEMOGLOBIN A1C - [facility] 6.4 (H) 11/22/2017 02:26 PM BP Readings from Last 1 Encounters: 09/04/23 140/72 Reviewed Health Maintenance below: Health Maintenance Topic Date Due DISCUSS TOBACCO CESSATION (REFER TO SMARTSET #1081) Never done Diabetic Eye Exam Never done Hepatitis C Screening Never done Hepatitis B (1 of 3 - 19+ 3-dose series) Never done Lung Cancer Screening Never done Albumin/Creatinine Ratio 08/10/2018 Pneumococcal Vaccine: Pediatrics (0 to 5 Years) and At-Risk Patients (6 to 64 Years) (2 of 2 - PCV)01/04/2019 B-12 12/11/2019 GFR 08/18/2020 HbA1c 10/20/2020 Mammogram 04/21/2021 Depression, Most Recent Score >= 10 (will fire each visit until score < 10) 09/05/2023 Influenza Vaccine (FLU shot) (Season Ended) 2023 Labs already ordered Mamm already scheduled Care Gap Outreach Action Taken:unable to reach mailbox full my g snet documented in this encounter Plan of Treatment Upcoming Encounters Date Type Department Care Team (Late st Contact Info) Description 10/09/2023 1:45 PM EDT Imaging Radiology [address] [place] [address] 03/10/2024 10:40 AM EST Office Visit Family Practice [facility] [address] [place] [address] Toni Burnham MD [address] [place] [address] Scheduled Procedures Name Priority Associated Diagnoses Date/Ti me COLONOSCOPY FLEXIBLE PROXIMA L DIAGNOSTIC Recall Encounter for screening colonoscopy Health Maintenance Due Date Last Done Comments DISCUSS TOBACCO CESSATION (REFER TO SMARTSET #3800) 1965 Diabetic Eye Exam 1983 Hepatitis C [...] visit until score < 10) 09/05/2023 09/04/2023 Influenza Vaccine (FLU shot) (Season Ended) 2023 [...] filedocumented as of this encounter Care Teams House Registry Rn Relationship Specialty Start Date End Date Rudy Mckenzie MD [address] [place] [address] PCP - General Family Medicine 04/21/20 documented as of this encounter
--- OUTSIDE RECORDS SUMMARY | 2024-02-14 11:30 | External Medical Summary | Summary of Care ---
Author Name Unknown Organization [facility] Address [address] [place] [address] Phone [phone] Care Team Providers Care Blanket Inspector Name Role Phone Rudy Mckenzie MD Primary Care Provider [phone] Encounter Details Date Type Department Care Team (Late st Contact Info) Description 10/30/2023 Result Scan Unspecified Department <No scans attached> Allergies Active Allergy Reactions Criticality Noted Date Comments Buprenorphine-Naloxone Rash 06/20/2019 Citalopram Other (Please comment) 07/06/2017 Restless legs Codeine Abdominal pain 11/01/2015 Ketorolac Tromethamine 11/01/2015 Other reaction(s): Other (See Comment) Restless leg syndrome Penicillins 12/05/2013 Swelling in her lips and gluteals. In approximately 2008 documented as of this encounter (statuses as of 11/01/2023) Medications Medication Sig Dispensed Refills Start Date [...] as of this encounter (statuses as of 11/01/2023) Active Problems Problem Noted Date Diagnosed Date [...] as of this encounter (statuses as of 11/01/2023) Resolved Problems Problem Noted Date Diagnosed Date [...] as of this encounter (statuses as of 11/01/2023) Immunizations Name Administration Dates Next Due COVID-19 mRNA, LNP-s, No Pre serve, 2-Dose Series (Excelera) 08/09/2020,07/15/2020 Pneumococcal Conjugate Vaccine, 7 Valent 014,02/10/2013 [...] 10:40 AM EST Office Visit Family Practice [facility] [address] [place] [address] Toni Burnham MD [address] [place] [address] Scheduled Procedures Name Priority Associated Diagnoses Date/Ti me COLONOSCOPY FLEXIBLE PROXIMA L DIAGNOSTIC Recall Encounter for screening colonoscopy Health Maintenance Due Date Last Done Comments DISCUSS TOBACCO CESSATION (REFER TO SMARTSET #3309) 1965 Diabetic Eye Exam 1983 Hepatitis C Screening 1983 Hepatitis B Vaccine (1 of 3 - 19+ 3-dose series) 02/06/1984 Cologuard 2010 Fecal Occult Blood Test 2010 Sigmoidoscopy 2010 Lung Cancer Screening 2015 10/30/2023 Albumin/Creatinine Ratio 08/10/2018 08/10/2017 Pneumococcal Vaccine: Pediatrics [...] 01/04/2018 (Declined) COVID-19 Vaccine Discontinued 08/09/2020, 07/15/2020 HIV Screening Discontinued HPV (Gardasil) Vaccine Aged Out No lo nger eligible based on patient's age to complete this topic MENINGOCOCCAL (MENACTRA/MENVEO) Aged Out No longer eligible based on patient's age to complete this topic Zoster Vaccines Discontinued documented as of this encounter Medical Devices Not on filedocumented as of this encounter Procedures Procedure Name Priority Date/Time Associated Diagnosis Comments RADIOLOGY SCANNED RESULT 10/30/2023 RADIOLOGY SCANNED RESULT 10/30/2023 RADIOLOGY SCANNED RESULT 10/30/2023 documented in this encounter Results * RADIOLOGY SCANNED RESULT (10/30/2023) 10/30/2023 No Physician Data Unknown DIAGNOSTIC RAD IOLOGY SERVICES * RADIOLOGY SCANNED RESULT (10/30/2023) 10/30/2023 No Physician Data Unknown DIAGNOSTIC RAD IOLOGY SERVICES * RADIOLOGY SCANNED RESULT (10/30/2023) 10/30/2023 No Physician Data Unknown DIAGNOSTIC RAD IOLOGY SERVICES documented in this encounter Care Teams Blanket Inspector Relationship Specialty Start Date End Date Rudy Mckenzie MD [address] [place] [address] PCP - General Family Medicine 04/21/20 documented as of this encounter
--- OUTSIDE RECORDS SUMMARY | 2024-02-14 11:30 | External Medical Summary | Summary of Care ---
Author Name Unknown Organization [facility] Address [address] [place] [address] Phone [phone] Care Team Providers Care Donkey Doctor Name Role Phone Rudy Mckenzie MD Primary Care Provider [phone] Encounter Details Date Type Department Care Team (Late st Contact Info) Description 11/01/2023 Orders Only Family Practice [facility] [address] [facility] [place] [address] Rudy Mckenzie MD [address] [address] Allergies Active Allergy Reactions Criticality Noted [...] hemoglobin A1c goal of less than 7.0% ([facility]) Test blood sugars 2 times [...] No 09/04/2023 Does the household have a zuni hospitallar source of income? (Household - for ages [...] 10:40 AM EST Office Visit Family Practice [facility] [address] [place] [address] Toni Burnham MD [address] [place] [address] Scheduled Procedures Name Priority Associated Diagnoses Date/Ti me COLONOSCOPY FLEXIBLE PROXIMA L DIAGNOSTIC Recall Encounter for screening colonoscopy Health Maintenance Due Date Last Done Comments DISCUSS TOBACCO CESSATION (REFER TO SMARTSET #6903) 1965 Diabetic Eye Exam 1983 Hepatitis C [...] Procedure Name Priority Date/Time Associated Diagnosis Comments XR CHEST 1 VIEW Routine 10/30/2023 CT ABD/PELVIS W IV AND W ORAL CONTRAST Routine 10/30/2023 CT CHEST W CONTRAST Routine 10/30/2023 documented in this encounter Results * CT ABD/PELVIS W IV AND W ORAL CONTRAST (10/30/2023) Anatomical Region Laterality Modality Body, Abdomen, Pelvis Other 10/30/20[address] Alfa [address] RAD CT * CT CHEST W CONTRAST (10/30/2023) Anatomical Region Laterality Modality Chest, Body, Cardio Other 10/30/[address]fa [address] * XR CHEST 1 VIEW (10/30/2023) Anatomical Region Laterality Modality Chest Other 10/30/2023 Alfa Emily DO RADIOLOGY (RAD GENER AL) documented in this encounter Care Teams Donkey Doctor Relationship Specialty Start Date End Date Rudy Mckenzie MD [address] [place] [address] PCP - General Family Medicine 04/21/20 documented as of this encounter
--- NOTE | 2024-02-14 15:33 | Communication Note ---
Date of Service: February 14, 2024 Patient seen and examined at bedside. She is lying on the bed comfortably; not in distress She reports that she feels short of breath on minimal exertion and reports chest discomfort on her right side. She reports pain and swelling of her left leg as well On physical exam; Constitutional: Alert oriented x 3; not in distress. Respiratory: Bilateral vesicular breath sound Cardiovascular: RRR, no murmur, no edema Vessels: no JVD or carotid bruit Chest: normal inspection of chest Abdomen: normal bowel sounds, soft, nontender, no hepatosplenomegaly Musculoskeletal: Left leg bigger than the right, no overlying redness/erythema Skin: no rashes, warm and dry normal turgor Neurologic: PERRL, EOMI, accommodation nl, no face palsy, no dysarthria CN's II- XI intact bilaterally and moves all extremities Psychiatric: A+Ox3, euthymic affect Assessment/plan Acute DVT of left popliteal vein Acute bilateral PE Prior history of DVT in 2019; report taking anticoagulation for few months Venous duplex shows left popliteal vein thrombus CT chest shows bilateral acute PE Echocardiogram shows normal EF; no significant valvular disease. Given unprovoked nature of her PE and prior history; discussed with patient regarding lifelong anticoagulation for which she is agreeable. She is currently on Lovenox; Eliquis prescription sent. Wean oxygen off as tolerated Please note the above document was generated using voice recognition software. It may contain grammatical, syntax or spelling errors. Any formal questions or concerns about the content, text or information contained within the body of this dictation should be directly addressed to the provider for clarification
[2024-02-15] MEDS ORDERED: GLUCOSE 10 TAB/TUBE PO PRN (07:47)
[2024-02-15] MEDS ORDERED: GLUCOSE 40% GEL 15 GM TUBE PO PRN (07:47)
[2024-02-15] MEDS ORDERED: DEXTROSE 50% 50 ML SYRINGE IV PRN (07:47)
[2024-02-15] MEDS ORDERED: GLUCAGON FOR INJ 1 MG VIAL SQ PRN (07:47)
[2024-02-15] MEDS ORDERED: CARBOHYDRATES FOR HYPOGLYCEMIA PO PRN (07:47)
[2024-02-15 12:15] VITALS: RESP 18
[2024-02-15] MEDS: INSULIN ASPART PER UNIT CHARGE SC SCH (12:55)
--- NOTE | 2024-02-15 13:24 | Hospitalist Progress Note ---
Date of Service February 15, 2024 Assessment & Plan (1) Acute pulmonary embolism: Plan: 59-year-old female with past medical history significant for type 2 diabetes currently not on any medications, hyperlipidemia, multinodular goiter, mild persistent asthma, morbid obesity, severe major depression, history of substance abuse, history of DVT presents with chest pain and shortness of breath and swelling of the lower extremity and found to acute DVT and PE. Acute pulmonary embolism Acute left lower extremity DVT Prior history of DVT in 2019; report taking anticoagulation for few months Venous duplex shows left popliteal vein thrombus CT chest shows bilateral acute PE Echocardiogram shows normal EF; no significant valvular disease. Given unprovoked nature of her PE and prior history; discussed with patient regarding lifelong anticoagulation for which she is agreeable. She is currently on Lovenox; Eliquis to be started at evening Monitor oxygen saturations; supplemental oxygen as needed to keep SpO2 over 90% Will need age-appropriate cancer screening; patient will have follow-up with PCP as outpatient Hypercoagulable work up pending Type 2 diabetes was previously on metformin Expensive 6.6% Discussed with patient; plan to start on metformin again at discharge and follow-up with PCP Tobacco abuse Cough Counseling Nebs as needed Depression Continue home medications History of hyperlipidemia Currently not taking statin Follow up with PCP Obesity Counseling DVT prophylaxis lovenox Disposition Telemetry Full code. Time spent evaluating patient, direct bedside care, chart review, placing o rders, interpretation of diagnostic studies, discussion with consultants, patient, and family members, as well as other required patient management activities is 50 minutes Please note the above document was generated using voice recognition software. It may contain grammatical, syntax or spelling errors. Any formal questions or concerns about the content, text or information contained within the body of this dictation should be directly addressed to the provider for clarification Admission and Anticipated Discharge Date Admission Date: February 14, 2024 Subjective Patient seen and examined at bedside. She reports mild dizziness while standing up Reports mild shortness of breath as well No significant events overnight Review of Systems Review of Systems: All systems reviewed & are unremarkable except as noted in Subjective Physical Exam Physical Exam: General- Not in distress Head- atraumatic Eyes- PERRL. ENT- oropharynx clear Neck- supple, no JVD. Lungs- clear to auscultation no wheezing or crackles. Heart- regular rate and rhythm; no murmur, no gallop. Abdomen- normal bowel sounds, soft, nontender, no distension Extremities- b/l lower extremity edema and erythema seen. Neuro- alert, oriented PERRL, no facial palsy; no dysarthria; moves extremities Results & Data Results & Data Vital Signs (Past 12 Hours) Vital Signs Temp Pulse Resp BP Pulse Ox Pulse Ox O2 Del Method 02/15/24 12:00 36.6 C 87 18 151/86 H 97 Room Air 02/15/24 09:00 Room Air 02/15/24 08:13 36.8 C 77 16 148/77 H 95 Room Air 02/15/24 04:48 90 02/15/24 03:53 36.8 C 65 18 154/87 H 90 Room Air O2 Del Method 02/15/24 12:00 02/15/24 09:00 02/15/24 08:13 02/15/24 04:48 Room Air 02/15/24 03:53
[2024-02-15] MEDS: APIXABAN 5 MG TABLET PO SCH (21:03)
--- NOTE | 2024-02-15 21:07 | Electrocardiogram Report ---
Test Reason : Blood Pressure : */* mmHG Vent. Rate : 71 BPM Atrial Rate : 71 BPM P-R Int : 154 ms QRS Dur : 74 ms QT Int : 374 ms P-R-T Axes : 48 11 90 degrees QTcB Int : 406 ms Normal sinus rhythm Nonspecific T wave abnormality When compared with ECG of 08-Dec-2011 15:30, No significant change Confirmed by Francisco Louie ([id number]) on 02/15/2024 9:06:42 PM Referred By: REFERRED SELF Confirmed By: Francisco Louie
[2024-02-15] MEDS: BENZONATATE 100 MG CAPSULE PO PRN (21:12)
[2024-02-15] MEDS: POLYETHYLENE (MIRALAX) 17 GM PACK PO PRN (21:13)
[2024-02-16 07:28] VITALS: TEMP 98.1
[2024-02-16 07:29] VITALS: PULSE 58
--- NOTE | 2024-02-16 10:34 | Discharge Summary ---
Date of Service February 16, 2024 Admission HPI Per Admitting Provider 59-year-old female with past medical history significant for type 2 diabetes currently not on any medications, hyperlipidemia, multinodular goiter, mild persistent asthma, morbid obesity, severe major depression, history of substance abuse, history of DVT presents with chest pain and shortness of breath and swelling of the lower extremity and found to acute DVT and PE. Patient states since last 2 days she is having chest pains all over the chest on and off and also chest tenderness for last 2 days. Walking short distance making her short of breath. Also noticed swelling and pain in the lower extremities past 2 days. Having headache for last 2 days. Dizziness for last 2 days. Mild blurred vision. Has some runny nose. Having cough. Smokes 1 pack of cigarettes daily. No fevers. Feeling cold. Appetite is okay. No difficulty swallowing. No nausea. No abdominal pain. Normal bowel and bladder movements. Denies any blood in the stools or black stools. Denies any hematuria. Also having pain a ll over the body and bones and asking to check for Lyme screen as she was camping. Patient states in 2019 she had a kidney surgery for recurrent UTI looks like a left pyeloplasty after that she developed pneumonia and then she developed DVT in right lower extremity for which she treated for 3 months of anticoagulation as per patient. Currently resting comfortably and hemodynamically stable. Past medical history. As mentioned above Past surgical history. Colonoscopy cystoscopy. Bilateral BSO for fibroid tumor. Bilateral ACL replacement. Laparoscopic cholecystectomy. Left laparoscopic pyeloplasty. Ligation of oviducts. Removal of ruptured appendix. Total hysterectomy. Social history. . Smoking average 1 pack a day for 39 years. Alcohol occasional. No drug use. Family history. Mother had uterine cancer. Admission Exam Per Admitting Provider General- Not in distress Head- atraumatic Eyes- PERRL. ENT- oropharynx clear Neck- supple, no JVD. Lungs- clear to auscultation no wheezing or crackles. Heart- regular rate and rhythm; no murmur, no gallop. Abdomen- normal bowel sounds, soft, nontender, no distension Extremities- b/l lower extremity edema and erythema seen. Neuro- alert, oriented PERRL, no facial palsy; no dysarthria; moves extremities Principal Diagnosis Acute pulmonary embolism Acute left lower extremity DVT Discharge Exam General- Not in distress Head- atraumatic Eyes- PERRL. ENT- oropharynx clear Neck- supple, no JVD. Lungs- clear to auscultation no wheezing or crackles. Heart- regular rate and rhythm; no murmur, no gallop. Abdomen- normal bowel sounds, soft, nontender, no distension Neuro- alert, oriented PERRL, no facial palsy; no dysarthria; moves extremities Discharge Data Allergies Allergy/AdvReac Type Severity Reaction Status Date / Time Penicillins Allergy Intermediate LIPS Verified 09/19/17 10:58 SWELLED citalopram Allergy Unknown RESTLESS Verified 09/19/17 10:58 LEGS ketorolac Allergy Unknown RESTLESS Verified 09/19/17 10:58 LEGS codeine AdvReac Unknown ABD PAIN Verified 09/19/17 10:58 Consultations 02/14/24 02:43 ED Decision to Admit Stat Ordered Studies 02/14/24 00:24 CT angio chest PE protocol Stat US venous doppler LE Stat Hospital Course (1) Acute pulmonary embolism: 59-year-old female with past medical history significant for type 2 diabetes currently not on any medications, hyperlipidemia, multinodular goiter, mild persistent asthma, morbid obesity, severe major depression, history of substance abuse, history of DVT presents with chest pain and shortness of breath and swelling of the lower extremity and found to acute DVT and PE. Acute pulmonary embolism Acute left lower extremity DVT Prior history of DVT in 2019; report taking anticoagulation for few months Venous duplex shows left popliteal vein thrombus CT chest shows bilateral acute PE Echocardiogram shows normal EF; no significant valvular disease. Patient was treated with Lovenox during the hospitalization. Given unprovoked nature of her PE and prior history; discussed with patient regarding lifelong anticoagulation for which she is agreeable. Discharge on Eliquis; instructions regarding dosing given to patient. Patient verbalized understanding Type 2 diabetes was previously on metformin HbA1c 6.6% Discussed with patient; started on metformin again at discharge and follow-up with PCP Please note the above document was generated using voice recognition software. It may contain grammatical, syntax or spelling errors. Any formal questions or concerns about the content, text or information contained within the body of this dictation should be directly addressed to the provider for clarification Total Time Total Time Spent Total Time Spent (In Minutes): 45 Total Time Includes: Examination of the Patient, Discharge Planning, Medication Reconciliation, Communication With Other Providers and Other Discharge Plan Discharge Items Patient Disposition: Home - Self-Care Reason For Visit: ACUTE PE AND DVT Discharge Diagnosis: Acute pulmonary embolism Acute left lower extremity DVT Activity: Resume your previous activity Non-emergency contact: Primary Care Provider Call non-emergency contact if: you have any medication questions and your symptoms worsen Follow-up/Referrals: Rudy Mckenzie MD [Primary Care Provider] - (Date & Time 02/22/2024 3:20 PM Provider Rudy Mckenzie MD Department Family [facility] ) Diet: Regular Addtl Attending Provider Instructions: You were admitted to the hospital due to blood clots in your left leg and lungs. You are prescribed Eliquis 5 mg tablets. Please take it as follows; 1) Take Eliquis 10 mg( 2 tablets) twice a day for 7 days (until morning dose of February 21, 2024), 2) Starting evening of February 21, 2024; take 5 mg( 1 tablet) twice a day. You will need to be on lifelong anticoagulation due to the nature of the blood clots. Please follow-up with your primary care doctor regarding refills. You are started on metformin for type 2 diabetes. Pending Studies at Discharge: No Stand-Alone Forms: My [facility] [employer], Smoking Cessation Medications and DC Order Prescriptions: New Eliquis 5 mg tablet 5 mg PO BID Qty: 74 0RF metformin 500 mg tablet extended release 24 hr 500 mg PO DAILY Qty: 30 0RF Continued venlafaxine 75 mg capsule,extended release 24hr 75 mg PO DAILY aripiprazole 5 mg tablet 5 mg PO DAILY Discharge Orders: Discharge Order (Routine); Ordered 02/16/24 Ordered By: Erich Todd/Other Patient Handouts: Diabetes: Meal Planning, Type 2 Diabetes Admission Data Admit Date/Time: 02/14/24 03:02 Attending Provider: Erich York Admit Provider: Ronni Briscoe Primary Care Provider: Rudy Mckenzie Other Providers: Ronni Briscoe
[2024-02-16 11:25] VITALS: BP 129/74; O2SAT 93
== END 2024-02-16 13:12 | disposition home or self-care (01) | DRG 176 ==
LOC: ED 22:09 → EDINP 02-14 03:02 → 2S 02-14 15:43